=== PATIENT | male | born 1940 | race Caucasian/White ===

== ENCOUNTER 2019-03-13 05:00 | Inpatient (IN) | payer MEDICARE, BC ==
[2019-03-13] MEDS ORDERED: ZYLOPRIM100 MG PO (05:11)
[2019-03-13] MEDS ORDERED: LIPITOR40 MG PO (05:11)
[2019-03-13] MEDS ORDERED: ZYBAN150 MG PO (05:12)
[2019-03-13] MEDS ORDERED: DONEPEZIL HCL10 MG PO (05:12)
[2019-03-13] MEDS ORDERED: COREG 3.1253.125 MG PO (05:12)
[2019-03-13] MEDS ORDERED: COLACE100 MG PO (05:12)
[2019-03-13] MEDS ORDERED: GABAPENTIN100 MG PO (05:13)
[2019-03-13] MEDS ORDERED: LEVEMIR IN100 UNITS/ SC (05:13)
[2019-03-13] MEDS ORDERED: FIBER LAXATIVE500 MG PO (05:13)
[2019-03-13] MEDS ORDERED: COZAAR100 MG PO (05:14)
[2019-03-13] MEDS ORDERED: NIACIN500 MG PO (05:14)
[2019-03-13] MEDS ORDERED: METFORMIN HCL500 M1 PO (05:14)
[2019-03-13] MEDS ORDERED: OMEPRAZOLE20 M1 PO (05:14)
[2019-03-13] MEDS ORDERED: VITAMIN B-12500 MC1 PO (05:15)
[2019-03-13] MEDS ORDERED: XARELTO20 MG PO (05:15)
[2019-03-13] MEDS ORDERED: SANTYL30 GM TP (05:15)
[2019-03-13] MEDS ORDERED: FLOMAX0.4 MG PO (05:15)
[2019-03-13] MEDS ORDERED: HYDROCODON-ACE1 EAC7 PO (05:16)
[2019-03-13] MEDS ORDERED: ATIVAN0.5 MG PO (05:16)
[2019-03-13] MEDS ORDERED: NYSTATIN1 PWD TOPICAL (05:16)
[2019-03-13 06:18] LABS: BASOPHILS 0.1 % (0-2); EOSINOPHILS 1.9 % (0-7); HEMATOCRIT 31.9 % (42.0-54.0); HEMOGLOBIN 9.9 g/dL (13.5-17.5); IMMATURE GRANULOCYTES 0.1 % (0-5); LYMPHOCYTES 15.8 % (15-50); MCH 25.5 pg (26.0-34.0); MCV 82.2 fL (80.0-100.0); MEAN PLATELET VOLUME 9.8 fL (7.4-10.4); MONOCYTES 9.5 % (2-11); NEUTROPHILS 72.6 % (40-80); PLATELET COUNT 349 10x3/uL (130-400); RBC 3.88 10x6/uL (4.20-6.10); RDW 15.7 % (11.5-14.5); WBC 7.4 10x3/uL (4.8-10.8)
[2019-03-13 06:33] LABS: ALBUMIN 2.2 g/dL (3.4-5.0); ALKALINE PHOSPHATASE 155 U/L (46-116); ALT (SGPT) 32 U/L (10-68); BILIRUBIN - TOTAL 0.49 mg/dL (0.2-1.3); CALC OSMOLALITY 280 mosm/kg (275-300); CALCIUM 8.7 mg/dL (8.5-10.1); CARBON DIOXIDE 25.7 mmol/L (21.0-32.0); CHLORIDE - SERUM 102 mmol/L (98-107); CREATININE - SERUM 1.5 mg/dL (0.6-1.3); GLUCOSE 91 mg/dL (74-106); POTASSIUM - SERUM 4.5 mmol/L (3.5-5.1); PROTEIN - SERUM 7.4 g/dL (6.4-8.2); SODIUM 138 mmol/L (136-145); UREA NITROGEN 26 mg/dL (7-18); eGFR NON AFRICAN AMERICAN 48 mL/min (90-120)
[2019-03-13 06:42] LABS: CREATINE KINASE 48 UL (21-232); MAGNESIUM - SERUM 1.2 mg/dL (1.8-2.4); PRO BNP 1205 pg/mL (0-450)
[2019-03-13 06:43] LABS: TROPONIN-I < 0.017 ng/mL (0.000-0.060)
--- NOTE | 2019-03-13 08:13 | NUR ---
RECEIVED PATIENT AT 0800 BY ESTRADA FROM ER. PATIENT ADMITTED TO ROOM 2107. PATIENT DENIES ANY LEFT SHOULDER PAIN AND FORGOT THAT THE SHOULDER PAIN WAS THE REASON FOR THE VISIT TO THE ER PER PATIENT REQUEST. PATIENT IS ALERT, NEEDS REORIENTATION TO TIME. PATIENT IS INCONTINENT. 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 PATIENT STATES HE HAD A BLISTER THAT WAS DEBRIDED, THEN IT GOT INFECTED AND IT HAS JUST BEEN A MESS EVERY SINCE. DRESSINGS HAVE NOT BEEN REMOVED AT THIS TIME. CALL LIGHT PLACED WITHIN REACH. NO DISTRESS. TELEMETRY ORDERED AND REQUESTED FROM MONITORS AT THIS TIME.
--- NOTE | 2019-03-13 08:53 | NUR ---
SPOKE WITH PATIENTS DAUGHTER AND VERIFIED ALLERGIES, SET PASSWORD SHARI MENDES. GAVE DAUGHTER FAX NUMBER TO SEND LATISHA PAPERWOKR. SHE IS TRYING TO GET A SITTER FOR PATIENT AT THIS TIME DUE TO PATIENT HAS HAD A FEMALE STALKING HIM AT THE [facility] AND HAVE HAD THE POLICE CALLED. PATIENTS DAUGHTER STATES THAT HE HAS HAD SOME MENTAL CHANGES ALONG WITH BEHAVIOR CHANGES OVER THE PAST FEW DAYS. SHELTON VERIFIED PATIENT IS DNR STATUS. THANKED SHELTON FOR ALL INFORMATION. SHELTON [phone]
--- NOTE | 2019-03-13 09:03 | NUR ---
REFUSED LOVENOX INJECTIONS. PATIENT HOLLORING AND SCREAMING THAT HE HAS BEEN POKED SO MANY TIMES AND HE DOESN'T WANT IT! PATIENT VERY IRRITABLE AT THIS TIME.
[2019-03-13 10:43] VITALS: BP 133/60; BMI 27.8
[2019-03-13 11:41] VITALS: BP 126/68
[2019-03-13 11:49] LABS: % SATURATION 14 % (15-55); IRON 22 ug/dl (35-150); TOTAL IRON BIND CAPACITY 153 ug/dl (260-445); UNSAT IRON BIND CAPACITY 131 ug/dl (150-375)
--- NOTE | 2019-03-13 11:56 | NUR ---
FSBS 93. NO INSULIN PER SLIDING SCALE. CAREGIVER AT BEDSIDE AT THIS TIME. NO DISTRESS.
[2019-03-13 11:58] VITALS: BMI 27.8
--- NOTE | 2019-03-13 13:09 | NUR ---
PATIENT REFUSED LABS AND GETS ANGRY AT STAFF FOR TRYING TO PROVIDE CARES FOR HIM. LAB PATIENT REFUSED IS FOR TROPONIN LEVEL.
--- NOTE | 2019-03-13 13:57 | NUR ---
PATIENTS CAREGIVER IS NOW GONE FOR THE DAY. NO FAMILY OR FRIENS AT BEDSIDE.
[2019-03-13 15:05] LABS: CKMB 1.5 U/L (0.0-3.6); CREATINE KINASE 54 UL (21-232); TROPONIN-I < 0.017 ng/mL (0.000-0.060)
[2019-03-13 16:41] VITALS: BP 134/62
--- NOTE | 2019-03-13 16:43 | NUR ---
PATIENT REFUSED FSBS AT THIS TIME.
--- NOTE | 2019-03-13 18:00 | NUR ---
PATIENTS DAUGHTER CALLED AGAIN TO MAKE SURE HE WASN'T BEING DISCHARGED AND TO CHECK ON HIM. PATIENT HAS NO VISITORS AT BEDSIDE. CALL LIGHT WITH IN REACH. CALL TRANSFERRED TO PATIENT ROOM AND PATIENT IS NOW SPEAKING WITH HIS DAUGHTER ON THE TELEPHONE. NO DISTRESS.
[2019-03-13 19:09] LABS: CKMB 1.3 U/L (0.0-3.6); CREATINE KINASE 51 UL (21-232); TROPONIN-I < 0.017 ng/mL (0.000-0.060)
[2019-03-13 20:00] VITALS: BP 108/46
--- NOTE | 2019-03-13 21:14 | NUR ---
RECIEVED UP IN BED WITH EYES CLOSED AND TV ON. EASILY AROUSES WITH VERBAL STIMULI. ORIENTED TO PERON AND PLACE. REPORTED HX OF DEMENTIA. URINAL AT BEDSIDE. IV TO RIGHT WRIST SL.. TELEMETRY IN PLACE. FSBS CHECKED AND 179. S/S GIVEN PER ORDERS. WEARS GLASSES. HAS A LEFT BKA AND RIGHT LEG HAS A DSG. CDI. TOOK ALL MEDICATIONS WITHOUT DIFFICULTY. DENIES ANY NEEDS AT THIS TIME.
[2019-03-14 01:15] LABS: CREATINE KINASE 34 UL (21-232); TROPONIN-I < 0.017 ng/mL (0.000-0.060)
[2019-03-14 02:36] LABS: BASOPHILS 0.2 % (0-2); EOSINOPHILS 1.8 % (0-7); HEMATOCRIT 29.7 % (42.0-54.0); HEMOGLOBIN 9.2 g/dL (13.5-17.5); IMMATURE GRANULOCYTES 0.1 % (0-5); LYMPHOCYTES 14.2 % (15-50); MCH 25.5 pg (26.0-34.0); MCV 82.3 fL (80.0-100.0); MONOCYTES 8.6 % (2-11); NEUTROPHILS 75.1 % (40-80); PLATELET COUNT 338 10x3/uL (130-400); RBC 3.61 10x6/uL (4.20-6.10); RDW 15.7 % (11.5-14.5); WBC 8.4 10x3/uL (4.8-10.8)
[2019-03-14 02:47] LABS: ANION GAP 10.1 mmol/L (8-16); CALCIUM 8.7 mg/dL (8.5-10.1); CARBON DIOXIDE 26.8 mmol/L (21.0-32.0); CREATININE - SERUM 1.5 mg/dL (0.6-1.3); POTASSIUM - SERUM 3.9 mmol/L (3.5-5.1)
[2019-03-14 04:00] VITALS: BP 108/47
--- NOTE | 2019-03-14 07:30 | NUR ---
PT LAYING IN BED. ASKING ABOUT WHEN HE GETS TO GO HOME. P THAS NO COMPLAINTS THIS MORNING AND IS SHOWING NO S/SX OF DISTRESS. CALL LIGHT WITHIN REACH AND BED ALARM IS ON.
[2019-03-14 07:57] VITALS: BP 117/51
[2019-03-14 11:57] VITALS: BP 106/42
[2019-03-14] MEDS ORDERED: Aricept PO (12:54)
--- NOTE | 2019-03-14 14:18 | NUR ---
CALLED [facility] FOR AMBULANCE TO TRANSPORT PT
--- NOTE | 2019-03-14 14:28 | NUR ---
CALLED REPORT TO THE [facility].
--- NOTE | 2019-03-14 15:10 | NUR ---
AMBULANCE HERE TO ASSURANCE SENIOR PT. REMOVED PT'S PIV FROM RIGHT WRIST. NO BLEEDING NOTED. ASSISTED PT IN GETTING NEW GOWN AND DEPENDS ON. ALSO ASSISTED PT OVER TO STRETCHER. NO OTHER NEEDS AT THIS TIME
[2019-03-17 11:13] LABS: FOLATE (FOLIC ACID) - SERUM 8.6 ng/mL (>3.0)
--- NOTE | 2019-03-19 11:27 | EC ---
PATIENT:ANNA MICHELLE DATE OF SERVICE: 03/13/19 SEX: M MEDICAL RECORD: [id number] DATE OF : 38 LOCATION:D.M2 D.210 AGE OF PATIENT: 78 ADMISSION DATE: 03/13/19 REFERRING PHYSICIAN: INTERPRETING PHYSICIAN: LUIS FARR MD ECHOCARDIOGRAM REPORT ECHO CHARGES 4 ECHO COMPLETE Date: 03/13/19 CLINICAL DIAGNOSIS: CHF ECHOCARDIOGRAPHIC MEASUREMENTS (adult normal given) AC root (d.<3.7cm) 2.3 cm LV Septum d (<1.2 cm> 1.2 cm Valve Excursion 1.1 cm LV Septum (systole) 1.3 cm Left Atria (s.<4.0cm> 4.5 cm LVPW d(<1.2cm) 1.4 cm RV (d.<2.3cm) 3.0 cm LVPW (sytole) 1.5 cm LV diastole(<5.6CM) 5.6 cm MV E-F(>70mm/sec) cm LV systole 4.7 cm LVOT Diameter 1.6 cm MV exc.(>10mm) cm Est.ejection fraction (50-75%) % DOPPLER: LVIT cm/sec A 25 cm/sec E 92 cm/sec LA cm/sec RVSP 32.2 mmHg LVOT 84 cm/sec AOP1/2T m/s Asc. Ao 216 cm/sec RVOT 78 cm/sec RA cm/sec PA 99 cm/sec AV Gradient Peak 18.6 mmHg AV Mean 9.5 mmHg AV Area 0.8 cm MV Gradient Peak 4.5 mmHg MV Mean 2.0 mmHg MV Area cm COMMENTS: Dress Fitter: Rosy [facility] [employer] Maker: 1 Dr. Farr TAPE# PACS Pericardial Effusion N DATE OF SERVICE: 03/13/2019 FINDINGS: 1. Left ventricular chamber size is within normal limits. Left ventricular systolic function is normal. Overall ejection fraction is estimated at 55%. 2. Left atrium is enlarged at 4.5 cm. Right atrium and right ventricular chamber sizes are as well mildly dilated. 3. Valvular structures: Aortic valve demonstrates [id number] calcific aortic stenosis. Valve area calculates to 0.8 cm-squared and there is a gradient of 18 mm across the valve. The remaining valvular structures have ECHOCARDIOGRAM REPORT [id number] ANNA MICHELLE normal structure and motion. 4. Doppler interrogation elsewise reveals mild mitral regurgitation and mild tricuspid regurgitation. No other valvular insufficiency or stenosis. Pulmonary systolic pressure is estimated at 32 mmHg. 5. No evidence of pericardial effusion or left ventricular thrombus. TRANSINT:[id number] Voice Confirmation ID: [id number] DOCUMENT ID: [id number] LUIS FARR MD at 1127 CC: [id number] DICTATION DATE: 03/14/19 1007 FIRE SAFETY INSPECTOR: 03/14/19 1528 DIS IN 03/14/19 [facility] [address] [place] [address]
--- NOTE | 2019-03-19 11:27 | CN ---
PATIENT NAME:ANNA MICHELLE MEDICAL RECORD: [id number] : 38 LOCATION:D. D.2107 ADMIT DATE: 03/13/19 ACCOUNT: [id number] CONSULTING PHYSICIAN: LUIS TORRES MD REFERRING PHYSICIAN: TORI ROBERT MD DATE OF CONSULTATION: 03/14/2019 CARDIOLOGY CONSULT DIAGNOSES: 1. Chest pain. 2. Atrial fibrillation, chronic. 3. Smoking history. 4. COPD. 5. Hypertension. 6. Hyperlipidemia. 7. Diabetes. 8. Aortic stenosis. 9. Dementia. HISTORY: Mr. Micehlle complains of left shoulder pain and some chest pain. The chest pain appears to be musculoskeletal from his shoulder. He said it was positional only when moving the shoulder. He denies any overt chest pain. No past history of coronary artery disease that we know. He does have a history of atrial fibrillation, for which he is on Xarelto; and hypertension, for which he is on losartan and Coreg. PHYSICAL EXAMINATION: GENERAL APPEARANCE: Well-nourished, well-developed, appears stated age. Level of distress, comfortable. PSYCHIATRIC: Mental status, alert, normal affect. Orientation, oriented to time, place and person. EYES: Lids and conjunctiva, noninjected. No discharge, no pallor. ENT: Lips, teeth, gums, normal dentition. Oropharynx, no cyanosis, no pallor. NECK: Carotid arteries, bilateral normal upstroke, no bruits, no thrills. JUGULAR VEINS: No jugular venous pressure or distention. CERVICAL LYMPH NODES: Nontender, nonenlarged. THYROID: Not enlarged. Nontender. No nodules. LUNGS: Respiratory effort, unlabored. CHEST: Normal curvature. No thoracic deformity. No chest wall tenderness. Percussion, resonant. Auscultation, clear. No wheezes, no rales, no rhonchi. CARDIOVASCULAR: Precordial exam, nondisplaced. No heaves or pericardial thrills. Rate and rhythm, regular. Heart sounds, normal S1, normal S2. No S3, no gallop, no rub. Systolic murmur, not heard. Diastolic murmur, not heard. EXTREMITIES: No cyanosis, no edema. Peripheral pulses, full and equal in all extremities, except as noted. No bruits appreciated. ABDOMEN: Soft, nondistended. Normal aorta. No bruit. Nontender. No masses. Liver, nontender, no hepatomegaly. Spleen, nontender, no splenomegaly. MUSCULOSKELETAL: No joint tenderness. No joint swelling. No erythema. NEUROLOGICAL: Normal gait, normal strength, normal tone. SKIN: Warm and dry. DIAGNOSTIC DATA: EKG has chronic atrial fibrillation. No ST-T abnormalities. LABORATORY DATA: Troponins are normal. CONSULT REPORT [id number] ANNA MICHELLE OVERALL IMPRESSION: Chest pain, most likely this is left shoulder pain and noncardiac in etiology. At this time, no other cardiac workup or treatment is necessary. TRANSINT:[id number] Voice Confirmation ID: [id number] DOCUMENT ID: [id number] LUIS TORRES MD at 1127 CC: [id number] DICTATION DATE: 03/14/19 1047 SUPERINTENDENT SERVICE: 03/14/19 1544 DIS IN 03/14/19 [facility] [address] [place] [address]
== END 2019-03-14 15:11 | disposition home or self-care (01) | DRG 291 ==
LOC: D.ER 05:00 → D.M2 07:00
PROVIDERS: Emergency Medicine; ADMIT Internal Medicine Nephrology; ATTEND Internal Medicine Nephrology
DX: I11.0 Hypertensive heart disease with heart failure (principal); I50.31 Acute diastolic (congestive) heart failure; N17.9 Acute kidney failure, unspecified; E83.42 Hypomagnesemia; E78.5 Hyperlipidemia, unspecified; E11.9 Type 2 diabetes mellitus without complications; I48.91 Unspecified atrial fibrillation; J44.9 Chronic obstructive pulmonary disease, unspecified; N40.0 Benign prostatic hyperplasia without lower urinary tract symptoms; F03.90 Unspecified dementia, unspecified severity, without behavioral disturbance, psychotic disturbance, mood disturbance, and anxiety; I25.119 Atherosclerotic heart disease of native coronary artery with unspecified angina pectoris; Z89.512 Acquired absence of left leg below knee

== ENCOUNTER 2019-03-21 08:13 | Inpatient (IN) | payer MEDICARE, BC ==
[2019-03-21 08:00] VITALS: BP 119/56
[~2019-03-21 08:13] MED LIST: ATIVAN0.5 MG PO; Aricept PO; COLACE100 MG PO; COREG 3.1253.125 MG PO; COZAAR100 MG PO; DONEPEZIL HCL10 MG PO; FIBER LAXATIVE500 MG PO; FLOMAX0.4 MG PO; GABAPENTIN100 MG PO; HYDROCODON-ACE1 EAC7 PO; LEVEMIR IN100 UNITS/ SC; LIPITOR40 MG PO; METFORMIN HCL500 M1 PO; NIACIN500 MG PO; NYSTATIN1 PWD TOPICAL; OMEPRAZOLE20 M1 PO; SANTYL30 GM TP; VITAMIN B-12500 MC1 PO; XARELTO20 MG PO; ZYBAN150 MG PO; ZYLOPRIM100 MG PO
--- NOTE | 2019-03-21 08:30 | NUR ---
PATIENT ADMITTED FROM THE [facility] DUE TO AGGRESSION. TO PATIENT ARRIVED VIA AMBULANCE AT 0730. LATISHA MICHELLE GAVE CONSENT FOR PATIENT TO BE ADMITTED TO UNIT. SPOKE WITH LATISHA CODEWORD: [place]. PATIENT IS A DNR POA STATED SO AND PAPERWORK SENT FROM THE [facility]. ON CHART. PT BELONGINGS IN CHART AND WATCH AND KEYS IN LOCK BOX. PT IS LEFT BELOW THE KNEE AMPUTEE.
[2019-03-21 11:17] LABS: BASOPHILS 0.2 % (0-2); EOSINOPHILS 1.2 % (0-7); HEMOGLOBIN 9.7 g/dL (13.5-17.5); IMMATURE GRANULOCYTES 0.2 % (0-5); LYMPHOCYTES 8.6 % (15-50); MCH 25.7 pg (26.0-34.0); MCHC 31.3 g/dL (31.0-37.0); MCV 82.2 fL (80.0-100.0); MEAN PLATELET VOLUME 9.6 fL (7.4-10.4); MONOCYTES 6.9 % (2-11); NEUTROPHILS 82.9 % (40-80); PLATELET COUNT 373 10x3/uL (130-400); RBC 3.77 10x6/uL (4.20-6.10); RDW 15.7 % (11.5-14.5); WBC 8.8 10x3/uL (4.8-10.8)
[2019-03-21] MEDS ORDERED: FIBER LAXATIVE500 MG (11:39)
[2019-03-21 11:40] LABS: ALBUMIN 2.2 g/dL (3.4-5.0); ANION GAP 14.2 mmol/L (8-16); BILIRUBIN - TOTAL 0.44 mg/dL (0.2-1.3); CALCIUM 9.3 mg/dL (8.5-10.1); CARBON DIOXIDE 26.6 mmol/L (21.0-32.0); CREATININE - SERUM 1.5 mg/dL (0.6-1.3); LDL-HDL RATIO 1.6 ratio (1.5-3.5); POTASSIUM - SERUM 4.8 mmol/L (3.5-5.1); PROTEIN - SERUM 7.8 g/dL (6.4-8.2); THYROID STIMULATING HORMONE 2.55 uIU/mL (0.36-3.74)
[2019-03-21] MEDS ORDERED: LEVEMIR IN100 UNITS/ SQ (11:41)
[2019-03-21] MEDS ORDERED: SEROQUEL25 MG PO (11:57)
--- NOTE | 2019-03-21 13:50 | NUR ---
PATIENT SITTING IN DAY AREA. NURSE WAS ASSESSING PATIENT. PT STATED "I'M GOING TO SEE HOW BAD I CAN HURT YOU. I'M GOING TO HURT EVERYONE IN HERE." WHEN ATTEMPT TO REDIRECT HE BEGIN TO HIT AT STAFF AND YELLED OUT "FUCK YOU" ATIVAN 0.5 MG IM AND HALDOL [address] MG[address] GIVEN IM IN RD PER DR. WOODALL ORDER. WILL REASSESS Q 1 HOUR. WILL CONT PLAN OF CARE.
--- NOTE | 2019-03-21 14:50 | NUR ---
PRN EFFECTIVE AT THIS TIME. CHAIR ALARM IN PLACE. PT ALERT AND AWAKE.
[2019-03-21 16:24] VITALS: BP 135/55
--- NOTE | 2019-03-21 19:49 | NUR ---
PATIENT CAME IN WITH A BANDAGE R FOOT. OTHER RN COMPRESSED PATIENT FOOT UPON ARRIVAL DUE TO BLEEDING. PT REFUSED TO ALLOW STAFF TO REMOVE BANDAGE AND TAKE WEIGHT. WOUND CONSULT TO BE ORDERED. [facility] STATED THE WOUND CLINIC AND HOSPICE DEBRIDEMENT FOR THE WOUND DUE TO NON HEALING. NURSE ASK IF OPTICAL DESIGNER RN COULD UNWRAP AND EVALUATE FOOT IF PT AGREED. RN AGREED. WILL CPOC.
--- NOTE | 2019-03-21 21:08 | NUR ---
RECEIVED IN DINING ROOM AREA. SITTING IN A CHAIR. TV ON. CALM AND COOPERATIVE WITH CARE AND ASSESSMENT. NO SIGNS OF AGGRESSION. REDIRECT AND REORIENT NEEDED. CONTINUES TO SIT QUIETLY. CONTINUE PLAN OF CARE
[2019-03-21 23:51] VITALS: BP 115/60
--- NOTE | 2019-03-22 07:30 | NUR ---
AWAKE AND ALERT LYING IN BED, YELLING AT STAFF. REFUSING HELP TO GET UP. THIS NURSE TALKED WITH HIM, HE CALMED DOWN. AND GOT DRESSED FOR BREAKFAST. RIGHT FOOT WOUND DRESSING CLEANED AND CHANGED. APPLIED 4X4, ABD AND CLING WRAP. STAFF ASSISTED PATIENT INTO WHEELCHAIR. FALL PRECAUTIONS IN PLACE. WILL CONTINUE TO MONITOR.
[2019-03-22 08:52] VITALS: BP 148/63
--- NOTE | 2019-03-22 14:53 | PSY ---
PATIENT NAME:ANNA MICHELLE MEDICAL RECORD: [id number] : 38 LOCATION:MANAS [facility] ADMISSION DATE: 03/21/19 ACCOUNT: [id number] PSYCHIATRIC EVALUATION DATE OF EVALUATION: 03/21/19 PSYCHIATRIC EVALUATION IDENTIFYING DATA: The patient is 78 years old and he is admitted to the hospital on a voluntary basis. CHIEF COMPLAINT: Aggression. HISTORY OF PRESENT ILLNESS: The patient lives in an assisted living center. He apparently has become quite aggressive there. He was assaultive with staff. In fact, today, the nurse tells me she had to give him a p.r.n. dose of Haldol and Ativan because he said he was going to kill her. This was completely unprovoked and she says that he said this in a very matter of fact way while staring intently at her and would not answer why he is angry with her. He endorses some neurovegetative depressive symptoms, but denies that he is depressed. He says he has had no problem with his memory or concentration, but he clearly is impaired cognitively and he is receiving Aricept, indicating diagnosis of dementia at some point. He is not a very good historian. This is a Friday. There are scant records and no family available at this time. PAST MEDICAL HISTORY: Significant for leg amputation below the knee, reasons are uncertain according to the patient, but my suspicion is it was vascular insufficiency related to long-standing diabetes. Apparently, he also smoked cigarettes as he is taking Zyban to assist with smoking cessation. In addition to this, the patient has benign prostatic hypertrophy, diabetes, and hypercholesterolemia. PAST PSYCHIATRIC HISTORY: Denied by the patient, but clearly he has established diagnosis of dementia. FAMILY HISTORY: Noncontributory, but again the patient is a poor historian. ALLERGIES: SULFA AND LISINOPRIL. CURRENT MEDICATIONS: Include Xarelto, Lipitor, Coreg, Niaspan, Neurontin, Colace, Glucophage, Aricept, Flomax, Seroquel, Prilosec, and allopurinol. SOCIAL HISTORY: The patient is . He has 2 adult daughters, one lives in [place] and the other in [place]. 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 His doctorate is in sociology and anthropology. 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 He is a [employer] , but did not see combat and served his enlistment in between major conflicts. MENTAL STATUS EXAMINATION: The patient is awake; alert; and oriented to person and place, but not to time or situation. His mood is angry. His affect is constricted. Thought processes are circumstantial. Memory, concentration, and abstraction abilities are moderately impaired. He denies that he would seek to harm himself or others as well as any active psychotic symptoms. ASSETS: Supportive family members. LIABILITIES: Limited insight. DIAGNOSTIC IMPRESSION: AXIS I: Vascular dementia. AXIS II: None. AXIS III: Diabetes, hypertension, benign prostatic hypertrophy, and peripheral vascular disease. AXIS IV: Moderate. AXIS V: Global assessment of functioning is 30. PLAN: At this time, the patient is admitted to the hospital secondary to aggressive behavior associated with dementing illness. He will be comprehensively evaluated from both medical, psychological, and social standpoint. His long-term prognosis is guarded. TRANSINT:[id number] Voice Confirmation ID: [id number] DOCUMENT ID: [id number] BRANDIN JOEL MD at 1453 CC: [id number] DICTATION DATE: 03/21/19 1549 ARMY RANGER: 03/21/19 1628 ADM IN [facility] [address] [place] [id number]
[2019-03-22 20:06] VITALS: BP 98/79
--- NOTE | 2019-03-22 23:29 | NUR ---
PATIENT IS AGITATED, DEMANDING, RUDE TO STAFF, CURSES AT STAFF, REFUSED INSULIN THIS EVENING. DRESSING TO FOOT IS INTACT WITH SMALL AMOUNT OF BLOODY DRAINAGE NOTED. WILL FOLLOW POC
[2019-03-23 06:12] LABS: VITAMIN D 25 HYDROXY 32.2 ng/mL (30.0-100.0)
[2019-03-23 07:19] LABS: RAPID PLASMA REAGIN Non Reactive (Non Reactive)
[2019-03-23 08:32] VITALS: BP 116/29
--- NOTE | 2019-03-23 15:05 | PN ---
PATIENT:ANNA MICHELLE MEDICAL RECORD: [id number] LOCATION:MANAS [facility]ent[facility]112 ADMISSION DATE: 03/21/19 PROGRESS NOTE DATE OF SERVICE: 03/22/2019 SUBJECTIVE: The patient's case was discussed with staff. He has no new complaint. OBJECTIVE: The patient is disorganized with limited insight about his condition. He tolerates his medicines well. ASSESSMENT: Vascular dementia. PLAN: The patient's current medicines have been reviewed. He is taking Seroquel during the day that is presumably to help with his agitation. I am going to leave it as it is today. He is certainly much more cooperative right now than he was yesterday and I am not sure how to explain that, but I am going to just monitor his behavior at this point. TRANSINT:[id number] Voice Confirmation ID: [id number] DOCUMENT ID: [id number] BRANDIN JOEL MD at 1505 CC: [id number] DICTATION DATE: 03/22/19 1520 VENIPUNCTURIST: 03/22/19 1529 ADM IN [place] [id number] [place] [id number]
--- NOTE | 2019-03-23 17:40 | NUR ---
PATIENT IS AWAKE AND ALERT, SOME CONFUSION NOTED. CALM AND COOPERATIVE WITH STAFF AND ASSESSMENT. REDIRECT AND REORIENT NOTED. WILL CONTINUE TO MONITOR.
--- NOTE | 2019-03-23 21:10 | NUR ---
RECEIVED IN BEDROOM RESTING IN BED WITH EYES CLOSED. CALM AND COOPERATIVE WITH CARE AND ASSESSMENT. NO SIGNS OF AGGRESSION. REDIRECT AND REORIENT NEEDED. RESTING IN BED WITH EYES CLOSED AT THIS TIME. CONTINUE PLAN OF CARE
--- NOTE | 2019-03-23 21:46 | NUR ---
PATIENT BECOMING DISRUPTIVE. YELLING OUT. MAKING THREATS TO STAFF. REDIRECTED. ENCOURAGE TO TAKE PM MEDS BUT REFUSED ALL MEDS.
[2019-03-24 05:13] LABS: FOLATE (FOLIC ACID) - SERUM 9.1 ng/mL (>3.0)
[2019-03-24 08:31] VITALS: BP 154/59
--- NOTE | 2019-03-24 10:00 | NUR ---
RECEIVED PATIENT IN DINING ROOM FOR B'FAST, ALERT, CALM, COOPERATIVE, NO AGGRESSION NOTED. DRESSING CHANGED TO FOOT PER ORDERS. MEDS ADMIN PER ORDERS WITH COMPLETE MED COMPLIANCE NOTED. COOPERATIVE WITH STAFF AND GROUP ACTIVITY. CONT POC DIRECTED.
--- NOTE | 2019-03-24 11:00 | NUR ---
L.E.: WOUND TO RIGHT HEEL CLEANED WITH SALINE CLEANSER, PATTED DRY WITH CLEAN GAUZE, SANTYL APPLIED, COVERED WITH 4 X 4, AND WRAPPED WITH KERLIX.
--- NOTE | 2019-03-24 11:08 | NUR ---
Pt has an unstageable pressure injury on his right heel measuring 8cm x 8cm x 1.1cm. Necrotic tissue is noted. Santyl ointment is being used with daily dressing changes. Recommend continuing Santyl until all necrotic tissue is removed. Wound care will continue monitoring.
--- NOTE | 2019-03-24 13:17 | PN ---
PATIENT:ANNA MICHELLE MEDICAL RECORD: [id number] LOCATION:AlexTOBY[facility]andan Lentz112 ADMISSION DATE: 03/21/19 PROGRESS NOTE DATE OF SERVICE: 03/23/2019 SUBJECTIVE: The patient's case was discussed with staff. He has no new complaint. OBJECTIVE: The patient is in good behavioral control. He has limited insight about his condition. ASSESSMENT: No change in diagnoses. PLAN: The patient's Seroquel will be discontinued. His long-term prognosis is guarded. TRANSINT:[id number] Voice Confirmation ID: [id number] DOCUMENT ID: [id number] BRANDIN JOEL MD at 1317 CC: [id number] DICTATION DATE: 03/23/[address] REGISTRY OFFICER: 03/23/19 1602 ADM IN [place] [id number] [place] [address]
--- NOTE | 2019-03-24 19:41 | NUR ---
RECEIVED IN PATIENT ROOM. RESTING IN BED WITH EYES OPEN. CALM AND COOPERATIVE WITH CARE AND ASSESSMENT. NO AGGRESSIVE BEHAVIORS. DEMANDING AT TIMES. REDIRECT AND REORIENT NEEDED. RESTING IN BED WITH EYES OPEN AT THIS TIME. CONTINUE PLAN OF CARE.
--- NOTE | 2019-03-25 07:42 | NUR ---
REC'D PATIENT IN BED WITH MHT ASSISTING TO GET DRESSED TO GET UP FOR BREAKFAST. RESP EVEN AND NONLABORED. NO ACUTE DISTRESS NOTED. PT WAS AGITATED WITH STAFF DURING DRESSING ASSISTANCE. 2X STAFF TO HELP. PT HAS A WOUND TO R HEEL AND AMPUTATION OF LEFT BELOW KNEE. REDIRECT AND REORIENT NEEDED. BED ALARM IN PLACE AND ACTIVE. WILL CONT PLAN OF CARE.
--- NOTE | 2019-03-25 07:48 | NUR ---
The patient voided a clean catch urine for UA and culture.
[2019-03-25 09:00] LABS: APPEARANCE CLEAR (CLEAR); COLOR YELLOW (YELLOW)
[2019-03-25 09:01] LABS: BACTERIA FEW /hpf (NONE SEEN); BILIRUBIN NEGATIVE (NEGATIVE); EPITHELIAL CELLS RARE /hpf (0-5); GLUCOSE NEGATIVE (NEGATIVE); KETONE NEGATIVE (NEGATIVE); NITRITE NEGATIVE (NEGATIVE); PROTEIN NEGATIVE (NEGATIVE); SPECIFIC GRAVITY 1.005 (1.005-1.020); WHITE CELLS - URINE RARE /hpf (0-5)
[2019-03-25 09:02] LABS: MUCUS <1+ /lpf (NONE SEEN)
--- NOTE | 2019-03-25 18:16 | NUR ---
PATIENT SITTING IN RECLINER CHAIR. PATIENT HAD A SHOWER THIS SHIFT. TOLERATED WELL. PT BECAME UPSET WHEN HE ASKED TO TALK TO PARIS WU AND NURSE TOLD HIM WE WOULD HAVE TO ASK HIS DAUGHTER. CALLED SHELTON IN REGARDS TO ISSUE. PT IS FINE AT THIS TIME. STAFF ASSISTED PATIENT INTO A LIFT SHEET IN ORDER TO RELIEVE PRESSURE TO WOUND ON R HEEL. PT DENIED ANY PAIN. CHAIR ALARM IN PLACE AND ACTIVE. WILL CONT PLAN OF CARE.
[2019-03-25 23:17] VITALS: BP 121/49
--- NOTE | 2019-03-26 01:30 | NUR ---
B) patient is alert amd oriented to person place and time, calm and cooperative this shift, I) Administered scheduled medications as ordered, monitored for needs, R) Mediation compliant, better cooperation from patient this shift P) Continue plan of care.
--- NOTE | 2019-03-26 07:30 | NUR ---
RECEIVED IN BED.INCONTINENT OF BOWEL AND BLADDER,CLEANED PER 2.BUTT PASTE APPLIED TO REDDNESS RECTAL AREA.COMPLIANT WITH STAFF.NO AGGRESSION OBSERVED.REQUIRES USE OF LISANDRO LIFT FOR TRANSFERS,WOUND TO RT.HEEL WITH DRESSING INTACT,LEFT BKA.WILL CONTINUE WITH PLAN OF CARE,MONITOR FOR CHANGES AND SAFETY.
--- NOTE | 2019-03-26 14:15 | PN ---
PATIENT:ANNA MICHELLE MEDICAL RECORD: [id number] LOCATION:MANAS [facility]112 ADMISSION DATE: 03/21/19 PROGRESS NOTE DATE OF SERVICE: 03/25/2019 SUBJECTIVE: The patient's case was discussed with staff. He has no new complaint. OBJECTIVE: The patient is partially oriented. His behavior has been good. He denies any thoughts of harming himself or others. He has pretty limited insight about his situation. ASSESSMENT: Vascular dementia. PLAN: Current medicines have been reviewed and will be maintained. I anticipate he can be transitioned out of the hospital soon. TRANSINT:[id number] Voice Confirmation ID: [id number] DOCUMENT ID: [id number] BRANDIN JOEL MD at 1415 CC: [id number] DICTATION DATE: 03/25/19 1535 TECHNICAL EDUCATION TEACHER: 03/25/192025 ADM IN [place] [id number] [place] [address]
--- NOTE | 2019-03-26 14:15 | PN ---
PATIENT:ANNA MICHELLE MEDICAL RECORD: [id number] LOCATION:BERNARD[facility]and[facility]112 ADMISSION DATE: 03/21/19 PROGRESS NOTE DATE OF SERVICE: 03/24/2019 SUBJECTIVE: The patient's case was discussed with staff. He has no new complaint. OBJECTIVE: The patient is in good behavioral control. He has limited insight about his condition. He tolerates his medicines well. He is very poorly oriented and has not been aggressive. ASSESSMENT: Vascular dementia. PLAN: The patient will be maintained on current medicines. Long-term prognosis is guarded. TRANSINT:[id number] Voice Confirmation ID: [id number] DOCUMENT ID: [id number] BRANDIN JOEL MD at 1415 CC: [id number] DICTATION DATE: 03/24/19 165 FAMILY READINESS SUPPORT ASSISTANT: 03/24/19 2205 ADM IN [place] [id number] [place] [address]
--- NOTE | 2019-03-26 19:44 | NUR ---
PATIENT IN RECLINER CHAIR AT THIS TIME. NO DISTRESS NOTED. NO BEHAVIORS NOTED THIS SHIFT. PT CHANGED VIA LIFT. MED COMPLIANT. CHAIR ALARM IN PLACE. WILL CONT TO MONITOR Q 15 MINS FOR SAFETY. CONT PLAN OF CARE.
[2019-03-26 20:00] VITALS: BP 162/80
--- NOTE | 2019-03-26 23:01 | NUR ---
PATIENT IS VERBALLY ABUSIVE TOWARDS STAFF, COMPLIANT WITH PO MEDS, REFUSED BLOOD SUGAR TO BE CHECKED AND REFUSED INSULIN, CAN VOICE NEEDS AND CONCERNS, PATIENT IS FORGETFUL. DRESSING TO FOOT IS INTACT, FOUL ODOR NOTED. WILL FOLLOW POC
--- NOTE | 2019-03-27 07:30 | NUR ---
WOUND TO RIGHT HEEL QUITE MALODOROUS AND DRAINING YELLOW DRAINAGE. WOUND CLEANED WITH SALINE WOUND CLEANSER, PATTED DRY WITH CLEAN GAUZE, SANTYL APPLIED, COVERED WITH CLEAN GAUZE 4 X 4 AND WRAPPED IN KERLIX. LOULOU WELL.
[2019-03-27 08:08] VITALS: BP 116/81
[2019-03-27 09:44] VITALS: BP 116/81
--- NOTE | 2019-03-27 10:00 | NUR ---
RECEIVED PATIENT IN DINING ROOM FOR B'FAST, ALERT, CALM, COOPERATIVE, NO AGGRESSION NOTED. POLITE AND APPRECIATIVE OF CARE. MEDS ADMIN PER ORDERS WITH COMPLETE MED COMPLIANCE NOTED. COOPERATIVE WITH GROUP AND STAFF REQUESTS. CONT POC INCLUDING MEDS AND GROUP THERAPY DIRECTED.
--- NOTE | 2019-03-27 10:36 | PN ---
PATIENT:ANNA MICHELLE MEDICAL RECORD: [id number] LOCATION:MANAS [facility] ADMISSION DATE: 03/21/19 PROGRESS NOTE DATE OF SERVICE: 03/26/2019 SUBJECTIVE: The patient's case was discussed with staff. He has no new complaint. OBJECTIVE: The patient is tolerating his medicines well. He has not been aggressive with staff and is actually more interactive. ASSESSMENT: No change in diagnoses. PLAN: Current medicines will be maintained. Long-term prognosis is guarded. TRANSINT:[id number] Voice Confirmation ID: [id number] DOCUMENT ID: [id number] BRANDIN JOEL MD at 1036 CC: [id number] DICTATION DATE: 03/26/19 1549 OUTREACH ASSISTANT: 03/26/19 2224 ADM IN [place] [address] [place] [address]
[2019-03-27 20:00] VITALS: BP 121/62
--- NOTE | 2019-03-28 03:04 | NUR ---
B) Patient is alert and oriented to person, place and time, poor memory at times, grumpy at times, I) Administered scheduled medications as ordered, monitored FSBS, assisted with needs, R) Medication compliant, sleeping quietly in bed, P) Continue plan of care.
[2019-03-28 07:00] VITALS: BP 132/56
--- NOTE | 2019-03-28 09:40 | PN ---
PATIENT:ANNA MICHELLE MEDICAL RECORD: [id number] LOCATION:[facility]112 ADMISSION DATE: 03/21/19 PROGRESS NOTE DATE OF SERVICE: 03/27/2019 SUBJECTIVE: The patient's case was discussed with staff. He has no new complaint. OBJECTIVE: The patient is in good behavioral control. He has not been aggressive. He is severely impaired cognitively and does not remember talking to me from day-to-day. ASSESSMENT: Vascular dementia. PLAN: Current medicines have been reviewed and will be maintained. Long-term prognosis is guarded. TRANSINT:[id number] Voice Confirmation ID: [id number] DOCUMENT ID: [id number] BRANDIN JOEL MD at 0940 CC: [id number] DICTATION DATE: 03/27/19 1217 SILK SCREEN PAINTER: 03/27/19 1655 ADM IN [place] [id number] [place] [address]
[2019-03-28 11:59] VITALS: BMI 29.1
--- NOTE | 2019-03-28 14:07 | NUR ---
PT IS AWAKE AND ALERT SITTING IN DAYROOM WATCHING TV WITH PEERS. CALM AND COOPERATIVE WITH ASSESSMENT. NO AGGRESSION NOTED AT THIS TIME. MED COMPLIANT. FALL PRECAUTIONS IN PLACE. WILL CPOC.
--- NOTE | 2019-03-28 21:32 | NUR ---
RECEIVED INDAYROOM. SITTING IN A CHAIR WITH PEERS AND STAFF AT HIS SIDE. CALM AND COOPERATIVE WITH CARE AND ASSESSMENT. NO SIGNS OF AGGRESSION. REDIRECT AND REOREINT NEEDED. CONTINUES TO SIT QUIETLY. CONTINUE PLLAN OF CARE
[2019-03-29 07:00] VITALS: BP 133/49
--- NOTE | 2019-03-29 08:45 | NUR ---
ATIVAN 0.5 MG ADMIN FOR ANXIETY. CURSING STAFF, YELLING PROFANITY.
--- NOTE | 2019-03-29 10:00 | NUR ---
DECUBITUS TO RIGHT HEEL CLEANSED WITH SALINE WOUND CLEANSER, PATTED DRY WITH CLEAN GAUZE, SANTYL APPLED TO WOUND, ADAPTIC APPLIED, THEN COVERED WITH CLEAN GAUZE AND WRAPPED IN KERLIX. WOUND CONT TO DRAIN YELLOW DRAINAGE. DR VIVAS'S OFFICE CALLED FOR CONSULT BUT OFFICE WAS CLOSED. WAS INSTRUCTED BY DR. PATEL'S STAFF TO CALL DR SHEETS. DR SHEETS STATED THAT HE DID NOT WORK ON FEET AND TO CONSULT A DOCUMENT IMAGING SPECIALIST. WILL NOTIFY DR MARLEY.
--- NOTE | 2019-03-29 12:59 | NUR ---
Nutrition follow up Diabetic KISHORE diet Glucerna all trays Pt eating ~60% of meals Weight 214lb Admit weight 205lb Will make nursing aware of possible weight change as pt has CHF. Admit weight was stated/bedscale RD following
--- NOTE | 2019-03-29 13:31 | NUR ---
RECEIVED PATIENT IN HALLWAY FOR A.M. VITAL SIGNS. AGITATED, COMBATIVE, HITTING STAFF, CURSING, QUITE ANGRY. YELLED TO STAFF MEMBER, "I WAS NOT READY TO GET OUT OF BED, BITCH!" MEDS ADMIN PER ORDERS WITH COMPLETE MED COMPLIANCE NOTED. ATIVAN 0.5 MG TAB ADMIN PO FOR ANXIETY. CONT POC DIRECTED. MONITOR FOR AGGRESSION.
--- NOTE | 2019-03-29 14:35 | PN ---
PATIENT:ANNA MICHELLE MEDICAL RECORD: [id number] LOCATION:[facility]S [facility] ADMISSION DATE: 03/21/19 PROGRESS NOTE DATE OF SERVICE: 03/28/2019 SUBJECTIVE: The patient's case was discussed with staff. He has no new complaint. OBJECTIVE: The patient is in good behavioral control. He has limited insight about his condition. ASSESSMENT: Vascular dementia. PLAN: The patient will have his Celexa increased to 20 mg daily. His long-term prognosis is guarded. Supportive and educational interventions were made. TRANSINT:[id number] Voice Confirmation ID: [id number] DOCUMENT ID: [id number] BRANDIN JOEL MD at 1435 CC: [id number] DICTATION DATE: 03/28/19 1009 PLASMA TABLE OPERATOR: 03/28/19 1354 ADM IN [place] [id number] [place] [address]
--- NOTE | 2019-03-29 21:34 | NUR ---
RECEIVED IN DAYROOM. RESTING IN RECLINER AND WATCHING TV. CALM AND COOPERATIVE WITH CARE AND ASSESSMENT. NO AGGRESSIVE BEHAVIORS. REDIRECT AND REORIENT NEEDED. CONTINUES TO WATCH TV AT THIS TIME. CONTINUE PLAN OF CARE.
[2019-03-30 02:22] VITALS: BP 140/70
[2019-03-30 08:00] VITALS: BP 132/74
--- NOTE | 2019-03-30 09:41 | PN ---
PATIENT:ANNA MICHELLE MEDICAL RECORD: [id number] LOCATION:[facility] ADMISSION DATE: 03/21/19 PROGRESS NOTE DATE OF SERVICE: 03/29/2019 SUBJECTIVE: The patient's case was discussed with staff. He has no new complaint. OBJECTIVE: The patient is in good behavioral control with limited insight about his condition. He is tolerating his current medicines well and actually has shown some significant improvement in his behavior. ASSESSMENT: Vascular dementia. PLAN: Current medicines have been reviewed and will be maintained. Long-term prognosis is guarded. TRANSINT:[id number] Voice Confirmation ID: [id number] DOCUMENT ID: [id number] BRANDIN JOEL MD at 0941 CC: [id number] DICTATION DATE: 03/29/19 1453 FIRE FIGHTER AIRPORT: 03/29/19 1504 ADM IN [place] [address] [place] [address]
--- NOTE | 2019-03-30 15:04 | NUR ---
PT IS AWAKE AND ALERT SITTING IN DAYROOM WATCHING TV WITH PEERS. CALM AND COOPERATIVE WITH ASSESSMENT. NO AGGRESSION NOTED AT THIS TIME. MED COMPLIANT. FALL PRECAUTIONS IN PLACE. REDIRECT AND REORIENT NEEDED. WILL CPOC.
--- NOTE | 2019-03-30 15:39 | NUR ---
PT IS ALERT AND ORIENTED TO PERSON ONLY. CALM AND COOPERATIVE WITH ASSESSMENT. REDIRECT AND REORIENT NEEDED. MED COMPLIANT. PT IS WATCHING TV WITH PEERS AT THIS TIME. FALL PRECAUTIONS IN PLACE. WILL CPOC.
--- NOTE | 2019-03-30 23:50 | NUR ---
RECEIVED IN PATIENT ROOM. RESTING IN BED WITH EYES OPEN. CALM AND COOPERATIVE WITH CARE AND ASSESSMENT. DEMANDING AT TIMES. REDIRECT AND REORIENT NEEDED. RESTING IN BED WITH EYES CLOSED AT THIS TIME. CONTINUE PLAN OF CARE.
[2019-03-31 09:00] VITALS: BP 136/69
--- NOTE | 2019-03-31 12:50 | PN ---
PATIENT:ANNA MICHELLE MEDICAL RECORD: [id number] LOCATION:MANAS [facility] ADMISSION DATE: 03/21/19 PROGRESS NOTE DATE OF SERVICE: 03/30/2019 SUBJECTIVE: The patient's case was discussed with staff. He has no new complaint. OBJECTIVE: The patient is in good behavioral control with pretty limited insight about his situation. He has not been aggressive or threatening. ASSESSMENT: Vascular dementia. PLAN: I anticipate the patient can be transitioned out of the hospital soon if this level of improvement continues. TRANSINT:[id number] Voice Confirmation ID: [id number] DOCUMENT ID: [id number] BRANDIN JOEL MD at 1250 CC: [id number] DICTATION DATE: 03/30/19 1142 CHEMICAL PATHOLOGIST: 03/30/19 1200 ADM IN [address] [place] [address]
--- NOTE | 2019-03-31 16:39 | NUR ---
NO AGGRESSION OBSERVED TODAY.COMPLIANT WITH STAFF AND MEDS.DRESSING CHANGE TO RIGHT HEEL DONE WITH STERILE TECHNIQUE.RT HEEL BRIDGED.WILL CONTINUE WITH PLAN OF CARE,MONITOR FOR CHANGES AND SAFETY.REMAINS IN BED TODAY FOR REST PER HIS REQUEST,ONE TO ONE SITTER.
[2019-03-31 20:00] VITALS: BP 118/51
--- NOTE | 2019-03-31 21:11 | NUR ---
RECEIVED IN PATIENT ROOM. RESTING IN BED WITH EYES OPEN. CALM AND COOPERATIVE WITH CARE AND ASSESSMENT. NEEDY AND DEMANDING AT TIMES. REDIRECT AND REORIENT NEEDED. RESTING IN BED WITH EYES CLOSED AT THIS TIME. CONTINUE PLAN OF CARE.
[2019-04-01 08:37] VITALS: BP 112/56
--- NOTE | 2019-04-01 15:03 | PN ---
PATIENT:ANNA MICHELLE MEDICAL RECORD: [id number] LOCATION:[facility]S [facility] ADMISSION DATE: 03/21/19 PROGRESS NOTE DATE OF SERVICE: 03/31/2019 SUBJECTIVE: The patient's case was discussed with staff. He has no new complaint. OBJECTIVE: The patient has been agitated and disruptive with staff. He has been threatening and aggressive. ASSESSMENT: Vascular dementia. PLAN: The patient is going to be started on Geodon at a dose of 25 mg at bedtime. He will be monitored for clinical changes associated with its use. His long-term prognosis is guarded. TRANSINT:[id number] Voice Confirmation ID: [id number] DOCUMENT ID: [id number] BRANDIN JOEL MD at 1503 CC: [id number] DICTATION DATE: 03/31/19 1533 BISQUE PLACER: 03/31/19 2332 ADM IN [place] [id number] [place] [id number]
--- NOTE | 2019-04-01 16:09 | NUR ---
HAS REMAINED IN BED TODAY WITH Q 15MIN OBSERVATION.IS ORIENTED TO SELF AND HOSPITAL.IS COMPLIANT WITH STAFF AND MEDS.NO AGGRESSION OBSERVED.WOUND CARE DONE THIS AM TO RT.HEEL WOUND.SCANT AMOUNT OF BLOODY DRAINAGE PRESENT.FOUL ODOR OBSERVED WHEN REMOVING OLD DRESSING.CENTER OF WOUND CLEAN AND PINK.WILL CONTINUE WITH PLAN OF CARE,MONITOR FOR CHANGES AND SAFETY.
[2019-04-01 20:00] VITALS: BP 141/70
--- NOTE | 2019-04-01 21:04 | NUR ---
RECEIVED IN PATIENT ROOM. RESTING IN BED WITH EYES OPEN. CALM AND COOPERTIVE WITH CARE AND ASSESSMENT. NO YELLING OUT THIS EVENING. NO AGGRESSIVE BEHAVIORS. REDIRECT AND REORIENT NEEDED. RESTING IN BED WITH EYES CLOSED AT THIS TIME. CONTINUE PLAN OF CARE.
[2019-04-02 09:26] VITALS: BP 108/56
--- NOTE | 2019-04-02 10:28 | NUR ---
B) The patient is awake and alert, he has poor insight into his situation. He is calm and not negative at this time. He has not shown any aggression. I) Provide prescribed meds. He does have a dressing to his right foot, will change it today. 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 P) Continue POC.
--- NOTE | 2019-04-02 11:15 | NUR ---
Changed the patient's dressing to his right heel. Cleansed, patted dry and applied a generous amount of sentyl, 4x4's and kerlix.
--- NOTE | 2019-04-02 15:53 | PN ---
PATIENT:ANNA MICHELLE MEDICAL RECORD: [id number] LOCATION:[facility]S [facility] ADMISSION DATE: 03/21/19 PROGRESS NOTE DATE OF SERVICE: 04/01/2019 SUBJECTIVE: The patient's case was discussed with staff. He has no new complaint. OBJECTIVE: The patient denies intent to harm himself or others. He is tolerating his medications well. He has pretty limited insight about his situation. He has been angry and disruptive with some of the staff. ASSESSMENT: Vascular dementia. PLAN: The patient's gabapentin is going to be increased to 300 mg 3 times daily. He will be monitored for clinical changes associated with its use. His long-term prognosis is guarded. TRANSINT:[id number] Voice Confirmation ID: [id number] DOCUMENT ID: [id number] BRANDIN JOEL MD at 1553 CC: [id number] DICTATION DATE: 04/01/19 1609 CHEMICAL ANALYST: 04/01/19 1725 ADM IN [id number] [place] [address]
--- NOTE | 2019-04-02 16:45 | NUR ---
fsbs 143. does not require insulin.
[2019-04-02 20:03] VITALS: BP 113/60
--- NOTE | 2019-04-02 21:51 | NUR ---
PATIENT HAS AN IMPAIRED MEMORY, LABILE, COMPLIANT WITH MEDS, DRESSING DRY AND INTACT. WILL FOLLOW POC
--- NOTE | 2019-04-03 10:30 | NUR ---
Cleansed and changed the patients dressing to his right heel.
--- NOTE | 2019-04-03 11:29 | PN ---
PATIENT:ANNA MICHELLE MEDICAL RECORD: [id number] LOCATION:MA[facility]S [facility] ADMISSION DATE: 03/21/19 PROGRESS NOTE DATE OF SERVICE: 04/02/2019 SUBJECTIVE: The patient's case was discussed with staff. He has no new complaint. OBJECTIVE: The patient is sleeping well. He has not been aggressive today. He has pretty limited insight about his situation. He is not eating adequately on a consistent basis. I am going to start the patient on Megace to assist with appetite stimulation. TRANSINT:[id number] Voice Confirmation ID: [id number] DOCUMENT ID: [id number] BRANDIN JOEL MD at 1129 CC: [id number] DICTATION DATE: 04/02/19 173 REEL TENDER: 04/02/192126 ADM IN [facility] [address] [place] [address]
[2019-04-03 11:51] VITALS: BP 126/64
--- NOTE | 2019-04-03 14:15 | NUR ---
B) The patient is confused, he has poor short term memory. He does flirt and talk with some of the lady patients and he has to be redirected. He has poor insight into his situation. He has not been irritable or aggressive today. He is not yelling. I) Provide prescribed meds. R) The patient is compliant with meds and unit milieu. P) Continue POC.
--- NOTE | 2019-04-03 16:45 | NUR ---
fsbs 171.
[2019-04-03 20:42] VITALS: BP 84/37
--- NOTE | 2019-04-03 21:27 | NUR ---
B) Patient is alert and oriented to person, place and time, grumpy at times, I) Administered scheduled medications as ordered, monitored for safety, R) Medication compliant, total care patient, P) Continue plan of care.
[2019-04-04 07:00] VITALS: BP 118/44
--- NOTE | 2019-04-04 07:30 | NUR ---
PT IS ALERT AND ORIENTED. CALM AND COOPERATIVE WITH ASSESSMENT. REDIRECT AND REORIENT NEEDED. NO AGGRESSION NOTED AT THIS TIME. MED COMPLIANT. FALL PRECAUTIONS IN PLACE. WILL CPOC.
--- NOTE | 2019-04-04 12:15 | PN ---
PATIENT:ANNA MICHELLE MEDICAL RECORD: [id number] LOCATION:MANAS [facility] ADMISSION DATE: 03/21/19 PROGRESS NOTE DATE OF SERVICE: 04/03/2019 SUBJECTIVE: The patient's case was discussed with staff. He has no new complaint. OBJECTIVE: The patient is in good behavioral control with no insight about his condition, tolerating his medicines well. ASSESSMENT: Vascular dementia. PLAN: Current medicines have been reviewed and will be maintained. Long-term prognosis is guarded. TRANSINT:[id number] Voice Confirmation ID: [id number] DOCUMENT ID: [id number] BRANDIN JOEL MD at 1215 CC: [id number] DICTATION DATE: 04/03/19 1254 INSIDE SALES LEAD: 04/03/19 1340 ADM IN [address] [place] [address]
[2019-04-04 20:56] VITALS: BP 88/37
--- NOTE | 2019-04-05 01:48 | NUR ---
RECEIVED IN DAYROOM. RESTING IN A CHAIR WITH PEERS AT HIS SIDE. CALM AND COOPERATIVE WITH CARE AND ASSESSMENT. DRESSING CHANGE TO RIGHT FOOT. NO SIGNS OF AGGRESSION. REDIRECT AND REORIENT NEEDED. RESTING IN BED WITH EYES CLOSED AT THIS TIME. CONTINUE PLAN OF CARE
[2019-04-05 07:00] VITALS: BP 100/38
--- NOTE | 2019-04-05 10:00 | NUR ---
AWAKE AND ALERT, NO AGGRESSION THIS AM. CALM AND COOPERATIVE WITH CARE AND ASSESSMENT. REDIRECT AND REORIENT NEEDEDD. MEDICATION COMPLIANT. WILL CONTINUE POC.
--- NOTE | 2019-04-05 10:12 | NUR ---
Nutrition follow up Diabetic KISHORE diet with Glucerna ordered all trays pt is eating 90-100% of meals past 2 days Weight 218lb-no weight loss RD following
--- NOTE | 2019-04-05 14:32 | PN ---
PATIENT:ANNA MICHELLE MEDICAL RECORD: [id number] LOCATION:MANAS [facility]ina[facility] ADMISSION DATE: 03/21/19 PROGRESS NOTE DATE OF SERVICE: 04/04/2019 SUBJECTIVE: The patient's case was discussed with staff. He has no new complaint. OBJECTIVE: The patient is in good behavioral control with limited insight about his condition. He does tolerate his medicines well. ASSESSMENT: Vascular dementia. PLAN: Current medicines and therapies have been reviewed, both will be maintained. Long-term prognosis is guarded. TRANSINT:[id number] Voice Confirmation ID: [id number] DOCUMENT ID: [id number] BRANDIN JOEL MD at 1432 CC: [id number] DICTATION DATE: 04/04/19 1254 ACETYLENE BURNER: 04/04/19 1439 ADM IN [facility] [address] [place] [address]
[2019-04-05 20:00] VITALS: BP 116/39
--- NOTE | 2019-04-05 20:44 | NUR ---
RECEIVED IN DAYROOM. RESTING IN A CHAIR WITH PEERS AT HIS SIDE. CALM AND COOPERATIVE WITH CARE AND ASSESSMENT. NO SIGNS OF AGGRESSION. REDIRECT AND REORIENT NEEDED. SITTING QUIETLY IN A CHAIR AT THIS TIME. CONTINUE PLAN OF CARE
[2019-04-06 08:30] VITALS: BP 125/47
--- NOTE | 2019-04-06 13:17 | PN ---
PATIENT:ANNA MICHELLE MEDICAL RECORD: [id number] LOCATION:MANAS [facility] ADMISSION DATE: 03/21/19 PROGRESS NOTE DATE OF SERVICE: 04/05/2019 SUBJECTIVE: The patient's case was discussed with staff. He has no new complaint. OBJECTIVE: The patient denies intent to harm himself or others. He is very impaired cognitively. He is sleeping and eating well. ASSESSMENT: Vascular dementia. PLAN: Brief supportive and educational interventions were made. Long-term prognosis is guarded. TRANSINT:[id number] Voice Confirmation ID: [id number] DOCUMENT ID: [id number] BRANDIN JOEL MD at 1317 CC: [id number] DICTATION DATE: 04/05/19 1622 MULTICUT LINE OPERATOR: 04/05/19 191 ADM IN [facility] [address] [place] [address]
--- NOTE | 2019-04-06 13:26 | NUR ---
RECEIVED PATIENT IN DAYROOM, ALERT, CALM, DENIES S.I., NO AGGRESSION NOTED. PATIENT HAS REMAINED CLOTHED. DRESSING TO FOOT CHANGED PER ORDERS. MEDS ADMIN PER ORDERS WITH COMPLETE MED COMPLIANCE NOTED. COOPERATIVE WITH STAFF AND GROUP THERAPY. CONT POC DIRECTED.
[2019-04-06 20:00] VITALS: BP 94/35
--- NOTE | 2019-04-06 21:19 | NUR ---
RECEIVED IN DAYROOM. ASSIST TO TRANSFERE TO BED. CALM AND COOPERATIVE WITH CARE AND ASSESSMENT. NO SIGNS OF AGGRESSION AT THIS TIME. RESTING QUIETLY IN BED AT THIS TIME. CONTINUE PLAN OF CARE
[2019-04-07 10:22] VITALS: BP 119/40
--- NOTE | 2019-04-07 13:27 | PN ---
PATIENT:ANNA MICHELLE MEDICAL RECORD: [id number] LOCATION:MANAS [facility] ADMISSION DATE: 03/21/19 PROGRESS NOTE DATE OF SERVICE: 04/06/2019 SUBJECTIVE: The patient's case was discussed with staff. He has no new complaint. OBJECTIVE: The patient denies intent to harm himself or others. He generally tolerates his medicines well. ASSESSMENT: Vascular dementia. PLAN: The patient is stable from a psychiatric standpoint and would likely be transitioned out of the hospital soon. Unfortunately, he is febrile today and I am going to ask internal medicine to review this and see if it needs to be addressed or in what way it should be addressed. TRANSINT:[id number] Voice Confirmation ID: [id number] DOCUMENT ID: [id number] BRANDIN JOEL MD at 1327 CC: [id number] DICTATION DATE: 04/06/19 1340 BRIDGE WORKER: 04/06/19 [address] [facility] [address] [place] [address]
--- NOTE | 2019-04-07 18:22 | NUR ---
ORIENTED TO SELF AND PLACE.COMPLIANT WITH STAFF AND MEDS.NO AGGRESSION OBSERVED.WILL CONTINUE WITH PLAN OF CARE,MONITOR FOR CHANGES AND SAFETY.
--- NOTE | 2019-04-07 21:05 | NUR ---
PATIENT IS COMPLIANT WITH MEDS, CAN BE DEFIANT AT TIMES, NO ADVERSE REACTION NOTED. DRESSING TO FOOT IS DRY AND INTACT. AMBULATES PER WHEEL CHAIR. CONFUSED AT TIMES. CAN MAKE NEEDS KNOWN, WILL FOLLOW POC
[2019-04-07 21:07] VITALS: BP 111/53
--- NOTE | 2019-04-08 07:10 | NUR ---
REC'D PATIENT SITTING IN RECLINER CHAIR WITH CHAIR ALARM IN PLACE. RESP EVEN AND NONLABORED. NO ACUTE DISTRESS NOTED. NO BEHAVIOR NOTED FROM PREVIOUS SHIFT. WOUND DRESSING CHANGED ON PREVIOUS SHIFT. CLEAN AND DRY. 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 WILL CONT PLAN OF CARE.
--- NOTE | 2019-04-08 10:20 | NUR ---
FABIOLA FROM THE [facility] HERE TO EVALUATE PATIENT TO DISCHARGE BACK TO THE [facility]. PAPERWORK WILL BE SENT TO [facility] LATER IF REACCEPTED.
[2019-04-08] MEDS ORDERED: Aricept PO (12:03)
[2019-04-08] MEDS ORDERED: CELEXA20 MG PO (12:04)
[2019-04-08] MEDS ORDERED: NEURONTIN 300300 MG PO (12:05)
[2019-04-08] MEDS ORDERED: PROTONIX40 MG PO (12:06)
[2019-04-08] MEDS ORDERED: GEODON20 MG PO (12:06)
[2019-04-08] MEDS ORDERED: MEGACE ES625 MG/5 M PO (12:07)
--- NOTE | 2019-04-08 14:32 | NUR ---
Called report to Theodora at the [facility] for Mr. Zeng. She stated that she did already receive the paperwork and the mobile lounge driver will pick him up after 3 pm.
--- NOTE | 2019-04-08 14:55 | PN ---
PATIENT:ANNA MICHELLE MEDICAL RECORD: [id number] LOCATION:[facility]S [facility] ADMISSION DATE: 03/21/19 PROGRESS NOTE DATE OF SERVICE: 04/07/2019 SUBJECTIVE: The patient's case was discussed with staff. He has no new complaint. OBJECTIVE: The patient is in good behavioral control. He has poor insight about his situation. He does tolerate his medicines well. ASSESSMENT: No change in diagnoses. PLAN: Brief supportive and educational interventions were made. Long-term prognosis is guarded. TRANSINT:[id number] Voice Confirmation ID: [id number] DOCUMENT ID: [id number] BRANDIN JOEL MD at 1455 CC: [id number] DICTATION DATE: 04/07/19 1353 PACKAGING MANAGER: 04/07/19 1421 ADM IN [place] [address] [place] [address]
--- NOTE | 2019-04-08 15:35 | NUR ---
PATIENT DISCHARGED BACK TO THE [facility] WITH STAFF. PATIENT STABLE AT TIME OF DISCHARGE. PATIENT BANDAGE WAS REINFORCED AT TIME OF DISCHARGE. PATIENT PAPERWORK AND FAXED TO THE FACILITY. PATIENT BELONGINGS SENT WITH [facility] STAFF. ALL MEDICATION GIVEN. NO DISTRESS NOTED.
--- NOTE | 2019-04-09 15:38 | PN ---
PATIENT:ANNA MICHELLE MEDICAL RECORD: [id number] LOCATION:[facility] ADMISSION DATE: 03/21/19 PROGRESS NOTE DATE OF SERVICE: 04/08/2019 SUBJECTIVE: The patient's case was discussed with staff. He has no new complaint. OBJECTIVE: The patient denies intent to harm himself or others. He is in good behavioral control. He has poor insight about his situation. ASSESSMENT: Vascular dementia. PLAN: Current medicines and therapies have been reviewed. They will be maintained. His long-term prognosis is guarded. TRANSINT:[id number] Voice Confirmation ID: [id number] DOCUMENT ID: [id number] BRANDIN JOEL MD at 1538 CC: [id number] DICTATION DATE: 04/08/19 1519 SEARCH AND RESCUE OFFICER: 04/08/19 1542 DIS IN 04/08/19 [id number] [place] [address]
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
== END 2019-04-08 15:35 | disposition home or self-care (01) | DRG 56 ==
LOC: D.PSYCH 08:13
PROVIDERS: ADMIT Psychiatry & Neurology Psychiatry; ATTEND Psychiatry & Neurology Psychiatry
DX: G30.9 Alzheimer's disease, unspecified (principal); I50.31 Acute diastolic (congestive) heart failure; F02.81 Dementia in other diseases classified elsewhere, unspecified severity, with behavioral disturbance; F01.51 Vascular dementia, unspecified severity, with behavioral disturbance; I11.0 Hypertensive heart disease with heart failure; E11.40 Type 2 diabetes mellitus with diabetic neuropathy, unspecified; E78.5 Hyperlipidemia, unspecified; I48.91 Unspecified atrial fibrillation; M10.9 Gout, unspecified; E11.621 Type 2 diabetes mellitus with foot ulcer; L97.519 Non-pressure chronic ulcer of other part of right foot with unspecified severity; Z89.512 Acquired absence of left leg below knee; E53.8 Deficiency of other specified B group vitamins; N40.0 Benign prostatic hyperplasia without lower urinary tract symptoms; K21.9 Gastro-esophageal reflux disease without esophagitis; K59.00 Constipation, unspecified

== ENCOUNTER 2019-04-09 08:52 | Inpatient (IN) | payer OTHER ==
[~2019-04-09] VITALS: Ht 182.9 cm; Wt 93.4 kg
[~2019-04-09 08:52] MED LIST changes: +CELEXA20 MG PO; +FIBER LAXATIVE500 MG; +GEODON20 MG PO; +LEVEMIR IN100 UNITS/ SQ; +MEGACE ES625 MG/5 M PO; +NEURONTIN 300300 MG PO; +PROTONIX40 MG PO; +SEROQUEL25 MG PO
[2019-04-09 09:27] LABS: BASOPHILS 0.1 % (0-2); EOSINOPHILS 0.1 % (0-7); IMMATURE GRANULOCYTES 0.4 % (0-5); LYMPHOCYTES 11.1 % (15-50); MCH 24.1 pg (26.0-34.0); MCHC 31.1 g/dL (31.0-37.0); MCV 77.3 fL (80.0-100.0); MEAN PLATELET VOLUME 9.8 fL (7.4-10.4); MONOCYTES 5.7 % (2-11); NEUTROPHILS 82.6 % (40-80); PLATELET COUNT 358 10x3/uL (130-400); RBC 2.16 10x6/uL (4.20-6.10); RDW 16.9 % (11.5-14.5); WBC 11.2 10x3/uL (4.8-10.8)
[2019-04-09 09:28] LABS: HEMATOCRIT 16.7 % (42.0-54.0); HEMOGLOBIN 5.2 g/dL (13.5-17.5)
--- NOTE | 2019-04-09 09:29 | NUR ---
CRITICAL RESULTS RECEIVED FROM [facility] WITH LAB. PT HGB IS 5.2 AND HCT IS 16.7 - DR LIANG GIVEN RESULTS AT 0930
[2019-04-09 09:36] LABS: ALBUMIN 1.6 g/dL (3.4-5.0); ANION GAP 16.3 mmol/L (8-16); BILIRUBIN - TOTAL 0.28 mg/dL (0.2-1.3); CALCIUM 9.2 mg/dL (8.5-10.1); CARBON DIOXIDE 20.2 mmol/L (21.0-32.0); CREATININE - SERUM 2.2 mg/dL (0.6-1.3); POTASSIUM - SERUM 5.5 mmol/L (3.5-5.1)
[2019-04-09 09:43] LABS: APPEARANCE CLEAR (CLEAR); BILIRUBIN NEGATIVE (NEGATIVE); COLOR STRAW (YELLOW); GLUCOSE NEGATIVE (NEGATIVE); KETONE NEGATIVE (NEGATIVE); NITRITE NEGATIVE (NEGATIVE); PROTEIN NEGATIVE (NEGATIVE); UROBILINOGEN NORMAL (NORMAL)
--- NOTE | 2019-04-09 10:31 | NUR ---
CM spoke to patient's daughter Omayra Alvarado's POA, , after she spoke to Dr. Victor regarding her father's medical status. Omayra has opted for no treatmet for her father and would like him evaluated by [facility] for inpatient or home hospice services. Omayra has been in the process working with [facility] for hospice services. She is faxing the legals to them now. TYE verbally signed over the phone witnessed by Dr. Victor for [facility] services. Signed TYE form will stay with the ER chart as patient will most likely be admitted to Inpatient Hospice. Mariah Zepeda RN, CCM
[2019-04-09 11:28] VITALS: BP 124/59
--- NOTE | 2019-04-09 11:30 | NUR ---
PT RESTING PEACEFULLY - EVEN CHEST MOVEMENT AND RESPIRATIONS. [facility] NURSES PRESENT TO ADMIT PATIENT TO HOSPICE FOR GI BLEED.
[2019-04-09 12:42] VITALS: BP 125/66
[2019-04-09 13:24] VITALS: BP 114/40
[2019-04-09 14:30] VITALS: BP 110/44
[2019-04-09 17:49] VITALS: BP 114/40; BMI 28.0
--- NOTE | 2019-04-09 19:40 | NUR ---
KATHARINA JEAN BAPTISTE AND JOMAR MCCALLUM AT BEDSIDE CLEANING PATIENT UP. NO S/S OF DISTRESS. WILL CONTINUE TO MONITOR.
[2019-04-09 20:00] VITALS: BP 114/48
--- NOTE | 2019-04-09 21:11 | NUR ---
PATIENT RESTING IN BED WITH NO S/S OF DISTRESS. ADMINISTERED MEDS PER ORDERS. PATIENT DENIES NEEDS AT THIS TIME. BED IN LOWEST POSITION AND CALL LIGHT WITHIN REACH. ENCOURAGED THE PATIENT TO CALL IF HE HAS NEEDS. WILL CONTINUE TO MONITOR.
[2019-04-10 04:44] VITALS: BP 148/72
[2019-04-10 07:25] VITALS: BP 121/45
[2019-04-10 11:37] VITALS: Ht 182.9 cm; Wt 93.4 kg
--- NOTE | 2019-04-10 17:47 | NUR ---
PATIENT RESTING COMFORTABLY. CL IN REACH. NO NEEDS AT THIS TIME
--- NOTE | 2019-04-10 19:20 | NUR ---
PATIENT RESTING IN BED WITH NO S/S OF DISTRESS. BROUGHT PATIENT WATER PER HIS REQUEST. PATIENT DENIES OTHER NEEDS AT THIS TIME. BED IN LOWEST POSITION, CL WITHIN REACH, AND BED ALARM ON. ENCOUAGED THE PATIENT TO CALL IF HE HAS NEEDS. WILL CONTINUE TO MONITOR.
[2019-04-10 19:36] VITALS: BP 108/39
--- NOTE | 2019-04-11 00:57 | NUR ---
PATIENT RESTING IN BED WITH EYES CLOSED AND NO S/S OF DISTRESS. BED IN LOWEST POSITION AND CL WITHIN REACH. WILL CONTINUE TO MONITOR.
--- NOTE | 2019-04-11 03:22 | NUR ---
PATIENT RESTING IN BED WITH EYES CLOSED AND NO S/S OF DISTRESS. BED IN LOWEST POSITION AND CALL LIGHT WITHIN REACH. WILL CONTINUE TO MONITOR.
[2019-04-11 07:28] VITALS: BP 121/49
--- NOTE | 2019-04-11 09:20 | NUR ---
REORIENTED PATIENT ON HOW TO HIT THE CALL LIGHT FOR HELP AND TO CHANGE THE CHANNEL. CL IN REACH. NO FURTHER NEEDS AT THIS TIME. WCTM
--- NOTE | 2019-04-11 19:40 | NUR ---
PATIENT RESTING IN BED WITH NO S/S OF DISTRESS AND DENIES NEEDS AT THIS TIME. BED IN LOWEST POSITION AND CALL LIGHT WITHIN REACH. ENCOURAGED THE PATIENT TO CALL IF HE HAS NEEDS. WILL CONTINUE TO MONITOR.
[2019-04-11 20:19] VITALS: BP 115/44
--- NOTE | 2019-04-12 07:14 | NUR ---
REPORT RECEIVED. WILL CONTINUE WITH POC. PT CURRENTLY LYING SEMI FOWLERS. CALL LIGHT W/I REACH. RR EVEN AND UNLABORED ON 2L 02. NS INFUSING @50ML/HR VIA R.FOR PIV. NO S/S OF DISTRESS NOTED. PT IS CURRENTLY RESTING AT THE MOMENT. FALL PRECAUTIONS IN PLACE. WILL CTM.
[2019-04-12 07:45] VITALS: BP 120/54
--- NOTE | 2019-04-12 08:29 | MORECARE ---
CASE MANAGEMENT DISCHARGE SUMMARY PATIENT: ANNA MICHELLE UNIT: [id number] ADM DATE: 04/09/19 AGE: 78 : 39 SEX: M ROOM/BED: D.1201 AUTHOR: LITZY JUSTIN PHYSICIAN: REFERRING PHYSICIAN: FITO CONNER MD DATE OF SERVICE: 04/12/19 Discharge Plan Patient Name: ANNA MICHELLE Facility: [facility]:[place] : 1940 Planned Disposition: Hospice Medical Facility Anticipated Discharge Date: Discharge Date: Expected LOS: Initial Reviewer: [id number] Initial Review Date: 04/12/2019 Generated: 04/12/19 9:29 am Patient Name: ANNA MICHELLE Page [phone] at 0829 All edits/amendments must be made on the electronic document DICTATION DATE: 04/12/19828 PROJECT FINANCIAL ANALYST: BEST 04/12/19828 RPT#: [id number] DC DATE: STATUS: ADM IN [facility] [address] [place] [address] END OF REPORT
--- NOTE | 2019-04-12 08:46 | NUR ---
AM MEDICATIONS ADMINISTERED. PT WAS YELLING OUT BUT COULD NOT STATE WHAT HE NEEDED. PT HAD PULLED NASAL CANNULA OFF AND 02 SATS WERE 88%. PLACED CANNULA BACK ON AND INCREASED TO 95%. ADMINISTERED ORDERED DOSE OF ATIVAN TO CALM PATIENT AND FOR ANXIETY. WILL CTM. PT CURRENTLY RESTING. PT DID NOT WANT TO EAT BREAKFAST.
--- NOTE | 2019-04-12 09:02 | NUR ---
PT CONTINUES TO YELL OUT AND BE DISRUPTIVE AFTER COUNTLESS MEASURES TO CALM THE PATIENT. INSTRUCTED THE PT THAT IT IS NOT APPROPRIATE FOR HIM TO YELL HE IS AND HE STATES "I CAN DO WHATEVER THE FUCK I WANT, YOU DONT TELL ME WHAT TO DO." WILL CTM.
--- NOTE | 2019-04-12 10:12 | NUR ---
I have reviewed this patient and I concur with the Shift Assessment completed by the Licensed Practical Nurse today this shift.
--- NOTE | 2019-04-12 10:47 | NUR ---
PT HAD EPISODE URINARY INCONTINENCE. CLEANED PT AND APPLIED NEW LINEN. DRESSING CHANGED TO THE RIGHT HEEL PER ORDER. HEEL IS FLOATED ALONG WITH LEFT BKA. PT DENIES ANY NEEDS. WILL CTM.
[2019-04-12 11:06] VITALS: BP 123/60
--- NOTE | 2019-04-12 11:07 | NUR ---
PT RESTING. AWOKEN PT FOR VITAL SIGNS AND PT WAS CALM AND COOPERATIVE, NO S/S OF DISTRESS AND DENIED ANY NEEDS. WILL CTM.
--- NOTE | 2019-04-12 14:53 | NUR ---
PT HAD LARGE EPISODE OF URINARY INCONTINENCE. CLEANED PT AND APPLIED NEW LINEN. PT CONFUSED TO SITUATION BUT COOPERATED WELL. RR EVEN AND UNLABORED ON 2L 02. NO S/S OF DISTRESS NOTED. WILL CTM.
--- NOTE | 2019-04-12 18:26 | NUR ---
PT CURRENTLY LYING SEMI FOWLERS. CALL LIGHT W/I REACH. PT IS RESTING AT THE MOMENT. RR EVEN AND UNLABORED ON 2L 02. PT IS AT EASE AND THERE IS NO S/S OF DISTRESS NOTED. NS INFUSING @50ML/HR VIA R.FOR PIV. FALL PRECAUTIONS IN PLACE. WILL PASS REPORT AND CONTINUE WITH POC.
--- NOTE | 2019-04-12 19:38 | NUR ---
PATIENT RESTING IN BED AND DENIES NEEDS AT THIS TIME. BED IN LOWEST POSITION AND CALL LIGHT WITHIN REACH. ENCOURAGED THE PATIENT TO CALL IF HE HAS NEEDS. WILL CONTINUE TO MONITOR.
[2019-04-12 19:56] VITALS: BP 121/65
[2019-04-12 23:37] VITALS: BP 124/56
--- NOTE | 2019-04-13 03:12 | NUR ---
PATIENT RESTING IN BED WITH EYES CLOSED AND NO S/S OF DISTRESS. BED IN LOWEST POSITION AND CALL LIGHT WITHIN REACH. WILL CONTINUE TO MONITOR.
[2019-04-13 03:59] VITALS: BP 129/77
--- NOTE | 2019-04-13 07:15 | NUR ---
AM ROUNDS- PT RESTING COFORTABLY IN BED WITH EYES CLOSED, EASILY AROUSES TO VOICE. RESP EVEN AND NONLABORED ON 2L NC. RT FA INFUSING NS AT 50CC/HR. RT HEEL DRESSING CDI. ANAM ALARM ON. VITAL SIGNS TAKEN AT THIS TIME. PT DENIES ANY NEEDS AT THIS TIME, CALL LIGHT IN REACH, BEDSIDE RAILS X2, NAD NOTED, WILL CONTINUE TO MONITOR.
[2019-04-13 07:27] VITALS: BP 148/61
--- NOTE | 2019-04-13 08:59 | NUR ---
AM MEDS GIVEN, ALSO GAVE 2MG OF MORPHINE FOR PAIN LEVEL OF 5/10. CLEANED PT UP FROM INCONT EPISODE. ALSO PROVIDED DRESSING CHANGE TO RT ANKLE, CLEANED WOUND WITH SALINE AND APPLIED BETADINE AND NONADHERENT DRESSING COVERED WITH 4X4 AND WRAPPED WITH KERLEX. OFFERED PT HIS BREAKFAST BUT PT REFUSED OFFERED AND STATED " I JUST WANT TO REST RIGHT NOW". CALL LIGHT IN REACH, ANAM ALARM ON, BEDSIDE RAILS X2, NAD NOTED, WILL CONTINUE TO MONITOR.
--- NOTE | 2019-04-13 11:17 | NUR ---
PT RESTING COMFORTABLY IN BED, WITH EYES CLOSED, NAD NOTED, CALL LIGHT IN REACH, ANAM ALARM ON, WILL CONTINUE TO MONITOR.
[2019-04-13 12:07] VITALS: BP 102/63
--- NOTE | 2019-04-13 12:08 | NUR ---
VITAL SIGNS TAKEN AT THIS TIME. PT RESTING COMFORTABLY IN BED, BUT EASILY AROUSES TO VOICE. OFFERED PT SOMETHING TO EAT OR DRINK, PT DENIED OFFERED. DENIES ANY NEEDS AT THIS TIME. CALL LIGHT IN REACH, NAD NOTED, WILL CONTINUE PLAN OF CARE.
--- NOTE | 2019-04-13 12:26 | MORECARE ---
CASE MANAGEMENT DISCHARGE SUMMARY PATIENT: ANNA MICHELLE UNIT: [id number] ADM DATE: 04/09/19 AGE: 78 : 39 SEX: M ROOM/BED: D.1201 AUTHOR: LITZY JUSTIN PHYSICIAN: REFERRING PHYSICIAN: FITO CONNER MD DATE OF SERVICE: 04/13/19 Discharge Plan Patient Name: ANNA MICHELLE Facility: [facility]:[place] : 1940 Planned Disposition: Hospice Medical Facility Anticipated Discharge Date: Discharge Date: Expected LOS: Initial Reviewer: [email or web address] Initial Review Date: 04/12/2019 Generated: 04/13/19 1:26 pm Comments DCP- Discharge Planning Updated by [email or web address]: Karina Shah on 04/13/19 11:[address] Patient Name: ANNA MICHELLE Admission Status: ER Accout number: [id number] Admission Date: 04-09-2019 : 1940 Admission Diagnosis: Attending: FITO CONNER Current LOS: 4 Anticipated DC Date: Planned Disposition: Hospice Medical Facility Primary Insurance: [facility] Discharge Planning Comments: LIVES AT [facility] Tunnel Miner: Karina Shah Last DP export: 04/12/19 7:29 a Patient Name: ANNA MICHELLE Page [phone] at 1226 All edits/amendments must be made on the electronic document DICTATION DATE: 04/13/19 1225 TELEGRAPH MECHANIC: BEST 04/13/19 1225 RPT#: [id number] DC DATE: STATUS: ADM IN [facility] [address] [place] [address] END OF REPORT
--- NOTE | 2019-04-13 13:28 | NUR ---
PT AWAKEN BY THIS NURSE TO SEE IF HE WANTED TO EAT LUNCH, PT STATED " NOT RIGHT NOW", AND CLOSED HIS EYES. ALSO CHECKED PT FROM INCONT AND PT WAS DRY. CALL LIGHT IN REACH, ANAM ALARM ON, BEDSIDE RAILX 2, NAD NOTED, WILL CONTINUE TO MONITOR.
--- NOTE | 2019-04-13 14:55 | NUR ---
NOTIFIED BY HOSPICE NURSE THAT PT IS MOANING A LITTLE AND HAS TAKEN HIS CLOTHES OFF, BREATHING A LITTEL HEAVY, ACTING LIKE HE IS AIR HUNGRY, 2MG OF MORPHINE GIVEN AT THIS TIME. HOSPICE NURSE OFFERED PT SOMETHIGN TO EAT OR DRINK AND PT DECLINED OFFER, PT DENIES ANY NEEDS AT THIS TIME. CALL LIGHT IN REACH, ANAM ALARM ON, NAD NOTED, WILL CONTINUE TO MONITOR.
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
--- NOTE | 2019-04-13 16:06 | NUR ---
PER HOSPICE NURSE JAI STEWART RN, KEEP IV MORPHINE, ATIVAN AND ZOFRAN JUST INCASE PT REFUSES TO TAKE PO MEDS OR PT DECLINES DURING THE NIGHT. NEW ORDERES PUT IN FOR MORPHINE, ATIVAN AND ZOFRAN.
[2019-04-13 16:21] VITALS: BP 129/57
--- NOTE | 2019-04-13 17:29 | NUR ---
GOT PT TO EAT 2 BITES OF SPAGHETTI AND 3 BITES OF GREEN BEANS, PT TOOK ABOUT FIVE SIPS OF LEMON NISQUALLY SODA AND THEN PT STATED THAT HE WAS DONE. CLEAN PT UP FROM INCONT EPISODE, WHILE CLEANING PT UP HE HAD ANOTHER INCONT EPISODE, COMPLETE LINEN CHANGE DONE AT THIS TIME. REPOSITIONED PT IN BED, CALL LIGHT IN REACH, BEDSIDE RAILS X2, ANAM ALARM ON.
--- NOTE | 2019-04-13 19:20 | NUR ---
LYING IN BED. SPEECH DIFF TO UNDERSTAND. DIFF FOLLOWING SIMPLE COMMANDS. CONFUSED. TRYING TO PULL OFF GOWN AND TAKING O2 OFF. NS @ 50 INFUSING IN RT FOREARM WITHOUT DIFF. RESP IRREG, O2 @ 3L/NC. LT BKA NOTED. DRSG NOTED TO RT HEEL IS C/D/I. INCONT OF B/B. SKIN IS PALE. ANAM ALARM IN USE FOR PT SAFETY. SR ELEVATED X2. CL IN REACH.
[2019-04-13 19:33] VITALS: BP 132/62
--- NOTE | 2019-04-13 22:00 | NUR ---
TRYING TO PULL OFF GOWN AND TOOK OFF O2 AGAIN. DIFF TO REDIRECT. CONFUSED. CL IN REACH. ANAM ALARM ON.
--- NOTE | 2019-04-14 06:36 | NUR ---
YELLING LOUDLY. AGITATED. PULLED IV OUT AT THIS TIME. CURSING STAFF AND GRABBED STAFFS ARM.
--- NOTE | 2019-04-14 07:31 | NUR ---
PT SCREAMING OUT HELP, WENT TO SEE WHAT PT NEEDED, PT STATES THAT HE IS HURTING. GAVE 5MG OF MORPHINE AND 1MG OF ATIVAN SUBLINGAL. PT STILL SCREAMING OUT, VERY CONFUSED, NO IV ACCESS SINCE PT PULLED OUT IV THIS AM. RESPOSITONED PT IN BED, ANAM ALARM ON, BEDSIDE RAILS X2, CALL LIGHT IN REACH, WILL CONTINUE TO MONITOR.
[2019-04-14 08:09] VITALS: BP 100/37
--- NOTE | 2019-04-14 09:11 | NUR ---
PT VERY ANXIOUS, PULLING HIS GOWN AND NASAL CANNULA OFF. PT ALSO SCREAMING OUT. WILL NOT STAY STILL IN THE BED, ASKED IF HE HURTING AND NO RESPONSE. GAVE 1MG OF ATIVAN TO HELP PT RELAX. PUT GOWN AND NASAL CANNULA BACK ON. PT REFUSED TO EAT BREAKFAST, TOOK A FEW SIPS OF WATER. CALL LIGHT IN REACH, ANAM ALARM ON, WILL CONTINUE TO MONITOR.
--- NOTE | 2019-04-14 10:48 | NUR ---
NOTIFIED BY HOSPICE NURSE THAT PT IS HAVING SHALLOW BREATHING AND IS USING HIS ABD MUSCLES TO BREATH, WANTS TO KNOW IF PT CAN HAVE MORPHINE NOW, GAVE 5MG OF MORPHINE. PT RESTLESS AT THIS TIME. PULLING AT GOWN AND NASAL CANNULA. PLACED NASAL CANNULA AND GOWN BACK ON, TRIED TO REORIENT PT BUT WAS UNSUCESSFUL. HELPED PT TO CALM DOWN A LITTLE, BEDSIDE RAILS X2, CALL LIGHT IN REACH, ANAM ALARM ON. WILL CONTINUE TO MONITOR.
--- NOTE | 2019-04-14 12:30 | NUR ---
PT RESTING COMFORTABLY IN BED WITH EYES CLOSED, RESP EVEN AND SHALLOW ON 4L BUT NO ACUTE DISTRESS NOTED. CALL LIGHT IN REACH, BEDSIDE RAILS X2, ANAM ALARM ON, WILL CONTINUE TO MONITOR.
[2019-04-14 12:50] VITALS: BP 114/58
--- NOTE | 2019-04-14 15:00 | MORECARE ---
CASE MANAGEMENT DISCHARGE SUMMARY PATIENT: ANNA MICHELLE UNIT: [id number] ADM DATE: 04/09/19 AGE: 78 : 39 SEX: M ROOM/BED: D.1201 AUTHOR: LITZY JUSTIN PHYSICIAN: REFERRING PHYSICIAN: FITO CONNER MD DATE OF SERVICE: 04/14/19 Discharge Plan Patient Name: ANNA MICHELLE Facility: [facility]:[place] : 1940 Planned Disposition: Hospice Medical Facility Anticipated Discharge Date: Discharge Date: Expected LOS: Initial Reviewer: [email or web address] Initial Review Date: 04/12/2019 Generated: 04/14/19 3:59 pm Comments DCP- Discharge Planning Updated by [email or web address]: Alma Cortes on 04/14/19 1:[address] BASILIA NURSE VISITED THE UNIT THIS AM. SHE SPOKE WITH THE PRIMARY NURSE. THE PATIENT WILL BE DISCHARGED TO A [facility] HOME TODAY. [facility] AT [address] [place] [address]. CONTACT PHONE NUMBER [phone]. TC TO [facility]. PHONE WAS NOT ACCEPTING CALLS. CM WAS CALLING TO VERIFY IF EQUIPMENT HAD BEEN DELIVERED. CM ALSO WANTED TO KNOW WHAT TIME TO ARRANGE FOR TRANSPORTATION. WILL CALL AGAIN. DCP- Discharge Planning Updated by [id number]: Karina Shah on 04/13/19 11:[address] Patient Name: ANNA MICHELLE Admission Status: ER Accout number: [id number] Admission Date: 04-09-2019 : 1940 Admission Diagnosis: Attending: FITO CONNER Current LOS: 4 Anticipated DC Date: Planned Disposition: Hospice Medical Facility Primary Insurance: [facility] Discharge Planning Comments: LIVES AT [facility] Line Palletizer: Karina Shah Last DP export: 04/13/19 11:26 a Patient Name: ANNA MICHELLE Page [phone] at 1500 All edits/amendments must be made on the electronic document DICTATION DATE: 04/14/19 145 SPOOL WORKER: BEST 04/14/19 1459 RPT#: [id number] DC DATE: STATUS: ADM IN [facility] [address] [place] [address] END OF REPORT
--- NOTE | 2019-04-14 15:08 | MORECARE ---
CASE MANAGEMENT DISCHARGE SUMMARY PATIENT: ANNA MICHELLE UNIT: [id number] ADM DATE: 04/09/19 AGE: 78 : 39 SEX: M ROOM/BED: D.1201 AUTHOR: LITZY JUSTIN PHYSICIAN: REFERRING PHYSICIAN: FITO CONNER MD DATE OF SERVICE: 04/14/19 Discharge Plan Patient Name: ANNA MICHELLE Facility: [facility]:[place] : 1940 Planned Disposition: Hospice Medical Facility Anticipated Discharge Date: Discharge Date: Expected LOS: Initial Reviewer: [id number] Initial Review Date: 04/12/2019 Generated: 04/14/19 4:08 pm Comments DCP- Discharge Planning Updated by [email or web address]: Alma Cortes on 04/14/19 2:[address] TC TO [facility]. THE EQUIPMENT HAS BEEN DELIVERED. BASILIA WILL ATTEMPT TO CALL [facility] REGARDING DISCHARGE TIME. PCS FORM COMPLETED. DCP- Discharge Planning Updated by [id number]: Alma Cortes on 04/14/19 1:[address] BASILIA NURSE VISITED THE UNIT THIS AM. SHE SPOKE WITH THE PRIMARY NURSE. THE PATIENT WILL BE DISCHARGED TO A [facility] TODAY. [facility] AT [address] [place] [address]. CONTACT PHONE NUMBER [phone]. TC TO [facility]. PHONE WAS NOT ACCEPTING CALLS. CM WAS CALLING TO VERIFY IF EQUIPMENT HAD BEEN DELIVERED. CM ALSO WANTED TO KNOW WHAT TIME TO ARRANGE FOR TRANSPORTATION. WILL CALL AGAIN. DCP- Discharge Planning Updated by [email or web address]: Karina Shah on 04/13/19 11:[address] Patient Name: NANA MICHELLE Admission Status: ER Accout number: [id number] Admission Date: 04-09-2019 : 1940 Admission Diagnosis: Attending: FITO CONNER Current LOS: 4 Anticipated DC Date: Planned Disposition: Hospice Medical Facility [facility] Discharge Planning Comments: LIVES AT [facility] Geophysical E Logger: Karina Shah Last DP export: 04/14/19 1:59 p Patient Name: ANNA MICHELLE Page [phone] at 1508 All edits/amendments must be made on the electronic document DICTATION DATE: 04/14/191507 RN CASE MGR: BEST 04/14/198 RPT#: [id number] DC DATE: STATUS: ADM IN [facility] [address] [place] [address] END OF REPORT
--- NOTE | 2019-04-14 15:16 | MORECARE ---
CASE MANAGEMENT DISCHARGE SUMMARY PATIENT: ANNA MICHELLE UNIT: [id number] ADM DATE: 04/09/19 AGE: 78 : 39 SEX: M ROOM/BED: D.1201 AUTHOR: MARGOTHDOC PHYSICIAN: REFERRING PHYSICIAN: FITO CONNER MD DATE OF SERVICE: 04/14/19 Discharge Plan Patient Name: ANNA MICHELLE Facility: [facility]:[place] : 1940 Planned Disposition: Hospice Medical Facility Anticipated Discharge Date: Discharge Date: Expected LOS: Initial Reviewer: [id number] Initial Review Date: 04/12/2019 Generated: 04/14/19 4:16 pm Comments DCP- Discharge Planning Updated by [email or web address]: Alma Cortes on 04/14/19 2:[address] PATIENT'S DAUGHTER CALLED. BASILIA HAD CALLED HER REGARDING THE DISCHARGE. CM EXPLAINED I WAS TRYING TO REACH [facility]. THE DAUGHTER VERIFIED THE CONTACT INFORMATION. [facility]'S PHONE NUMBER IS [phone] not [phone]. TC TO [facility] AT [phone]. [facility] ANSWERED. SHE CONFIRMS THE EQUIPMENT HAS BEEN DELIVERED. SHE IS READY FOR THE PATIENT. TRANSPORTATION VIA AMBULANCE. DISCHARGE PAPERWORK IS BEING PREPARED. DCP- Discharge Planning Updated by [email or web address]: Alma Cortes on 04/14/19 2:[address] TC TO [facility]. THE EQUIPMENT HAS BEEN DELIVERED. BASILIA WILL ATTEMPT TO CALL [facility] REGARDING DISCHARGE TIME. PCS FORM COMPLETED. DCP- Discharge Planning Updated by [id number]: Alma Cortes on 04/14/19 1:[address] BASILIA NURSE VISITED THE UNIT THIS AM. SHE SPOKE WITH THE PRIMARY NURSE. THE PATIENT WILL BE DISCHARGED TO A [facility] HOME TODAY. [facility] AT [address] [place] [address], [place] [address]. CONTACT PHONE NUMBER [phone]. TC TO [facility]. PHONE WAS NOT ACCEPTING CALLS. CM WAS CALLING TO VERIFY IF EQUIPMENT HAD BEEN DELIVERED. CM ALSO WANTED TO KNOW WHAT TIME TO ARRANGE FOR TRANSPORTATION. WILL CALL AGAIN. DCP- Discharge Planning Updated by [email or web address]: Karina Shah on 04/13/19 11:[address] Patient Name: ANNA MICHELLE Admission Status: ER Accout number: [id number] Admission Date: 04-09-2019 : 1940 Admission Diagnosis: Attending: FITO CONNER Current LOS: 4 Anticipated DC Date: Planned Disposition: Hospice Medical Facility [facility] Discharge Planning Comments: LIVES AT [facility] Desk Monitor: Karina Larry DP export: 04/14/19 2:08 p Patient Name: ANNA MICHELLE Page 53854 at 1516 All edits/amendments must be made on the electronic document DICTATION DATE: 04/14/19 1515 BEE TENDER: BEST 04/14/19 1515 RPT#: [id number] DC DATE: STATUS: ADM IN [facility] [address] [place] [address] END OF REPORT
--- NOTE | 2019-04-14 15:41 | MORECARE ---
CASE MANAGEMENT DISCHARGE SUMMARY PATIENT: ANNA MICHELLE UNIT: [id number] ADM DATE: 04/09/19 AGE: 78 : 39 SEX: M ROOM/BED: D.1201 AUTHOR: MARGOTH,DOC PHYSICIAN: REFERRING PHYSICIAN: FITO CONNER MD DATE OF SERVICE: 04/14/19 Discharge Plan Patient Name: ANNA MICHELLE Facility: [facility]:[place] : 1940 Planned Disposition: Hospice Medical Facility Anticipated Discharge Date: 04/14/19 Discharge Date: Expected LOS: 5 Initial Reviewer: [id number] Initial Review Date: 04/12/2019 Generated: 04/14/19 4:41 pm Comments DCP- Discharge Planning Updated by [email or web address]: Alma Cortes on 04/14/19 2:[address] TC TO [facility]. SPOKE WITH RAJ. [facility] IS PLANNING TO TRANSPORT THE PATIENT AFTER 5PM. SHE STATES THEY HAVE THE ADDRESS AND CONTACT INFORMATION FROM [facility] [facility]. FACE SHEET AND PCS FORM ARE AT THE DESK IN CASE IT IS NEEDED. CM ADVISED ASHA THE PRIMARY NURSE. DCP- Discharge Planning Updated by [id number]: Alma Cortes on 04/14/19 2:[address] PATIENT'S DAUGHTER CALLED. [place] HAD CALLED HER REGARDING THE DISCHARGE. [place] EXPLAINED I WAS TRYING TO REACH [facility]. THE DAUGHTER VERIFIED THE CONTACT INFORMATION. [facility]'S PHONE NUMBER IS [phone] not [phone]. TC TO [facility] AT [phone]. [facility] ANSWERED. SHE CONFIRMS THE EQUIPMENT HAS BEEN DELIVERED. SHE IS READY FOR THE PATIENT. TRANSPORTATION VIA AMBULANCE. DISCHARGE PAPERWORK IS BEING PREPARED. DCP- Discharge Planning Updated by [id number]: Alma Cortes on 04/14/19 2:[address] TC TO [facility]. THE EQUIPMENT HAS BEEN DELIVERED. [place] WILL ATTEMPT TO CALL [facility] REGARDING DISCHARGE TIME. PCS FORM COMPLETED. DCP- Discharge Planning Updated by [id number]: Alma Cortes on 04/14/19 1:[address] BASILIA NURSE VISITED THE UNIT THIS AM. SHE SPOKE WITH THE PRIMARY NURSE. THE PATIENT WILL BE DISCHARGED TO A [facility] HOME TODAY. [facility] AT [address] [place] [address], [place] [address]. CONTACT PHONE NUMBER [phone]. TC TO [facility]. PHONE WAS NOT ACCEPTING CALLS. CM WAS CALLING TO VERIFY IF EQUIPMENT HAD BEEN DELIVERED. CM ALSO WANTED TO KNOW WHAT TIME TO ARRANGE FOR TRANSPORTATION. WILL CALL AGAIN. DCP- Discharge Planning Updated by [email or web address]: Karina Shah on 04/13/19 11:[address] Patient Name: ANNA MICHELLE Admission Status: ER Accout number: [id number] Admission Date: 04-09-2019 : 1940 Admission Diagnosis: Attending: FITO CONNER Current LOS: 4 Anticipated DC Date: Planned Disposition: Hospice Medical Facility Primary Insurance: [employer] [facility] Discharge Planning Comments: LIVES AT [facility] Plasma Processor: Karina Shah Last DP export: 04/14/19 2:16 p Patient Name: ANNA MICHELLE Page [phone] at 1541 All edits/amendments must be made on the electronic document DICTATION DATE: 04/14/19 154 TELEPHONE AD TAKER: BEST 04/14/19 1540 RPT#: [id number] DC DATE: STATUS: ADM IN [facility] [address] [place] [address] END OF REPORT
--- NOTE | 2019-04-14 15:55 | NUR ---
CLEANED PT UP FROM INCONT EPISODE, COMPLETE LINEN CHANGE DONE, DRESSING CHANGE TO RT ANKLE PER ORDERES. PT CONTENT AT THIS TIME. DENIES ANY NEEDS, CALL LIGHT IN REACH, ANAM ALARM ON, NAD NOTED, WILL CONITNUE TO MONITOR.
--- NOTE | 2019-04-14 18:35 | NUR ---
[facility] HERE TO PICK PT UP. PT LEFT UNIT VIA STRETCHER WITH ALL BELONGINGS, NAD NOTED.
== END 2019-04-14 18:35 | disposition home or self-care (01) | DRG 951 ==
LOC: D.ER 08:52 → D.M3 12:48
PROVIDERS: Family Medicine; ADMIT Legal Medicine; ATTEND Legal Medicine
DX: Z51.5 Encounter for palliative care (principal)